=== PATIENT | female | born 1960 | race Caucasian/White ===

== ENCOUNTER → 2017-11-03 13:31 | Outpatient (CLI) | payer MEDICARE, BC, SELFPAY ==
[2017-11-03 15:37] LABS: Absolute Lymphocyte Count 1.67 X10^3/ul (0.83-4.51); Basophil# 0.02 X10^3/uL; Basophil% 0.4 % (0-1); Eosinophil# 0.06 X10^3/uL; Eosinophils% 1.1 % (0-5); Hematocrit 42.1 % (37-47); Hemoglobin 13.3 g/dl (12.0-15.0); Lymphocyte # 1.67 X10^3/ul (4.0); Lymphocyte % 31.5 % (19-41); Mean Corp Hgb Conc 31.6 g/gl (32-36); Mean Corpuscular Hgb 28.5 pg (27.0-32.0); Mean Corpuscular Volume 90.3 fL (81-99); Mean Platelet Vol. 10.8 fl (6.2-12.0); Monocyte# 0.55 X10^3/uL; Monocyte% 10.4 % (0-10); Neutrophil % 56.6 % (47-70); Platelet Count 270 K/mm3 (150-450); RBC Distribution Width SD 49.5 fl (35.1-43.9); Red Blood Count 4.66 M/mm3 (4.2-5.4); White Blood Count 5.3 K/mm3 (4.4-11.0)
[2017-11-03 15:46] LABS: POSITIVE COUNT NO; POSITIVE DIFFERENTIAL NO; POSITIVE MORPHOLOGY NO
[2017-11-03 15:47] LABS: AST(SGOT) 25 U/L (15-37); Alanine Aminotransfer ALT/SGPT 38 U/L (13-56); Albumin, Serum 3.4 g/dL (3.2-5.0); Alkaline Phosphatase 70 U/L (45-117); Anion Gap 7 (5-15); BUN 8 mg/dL (7-18); BUN/Creat Ratio 15.5 RATIO (10-20); Chloride 103 mmol/L (98-107); Creatinine, Serum 0.52 mg/dL (0.55-1.02); EST Glomerular Filtration Rate 129 mL/min (>60); Est Glom Filt Rate - Afr Amer 156 mL/min (>60); Globulin 3.5 g/dL (2.2-4.2); Glucose 84 mg/dL (74-106); Potassium 3.9 mmol/L (3.5-5.1); Protein, Total 6.9 g/dL (6.4-8.2); Sodium Level 141 mmol/L (136-145)
== END ==
PROVIDERS: Family Provider Family Medicine; PCP Family Medicine; Visit Provider Internal Medicine Rheumatology
DX: M06.00 Rheumatoid arthritis without rheumatoid factor, unspecified site (principal); Z79.899 Other long term (current) drug therapy; M79.7 Fibromyalgia; G56.00 Carpal tunnel syndrome, unspecified upper limb; M75.121 Complete rotator cuff tear or rupture of right shoulder, not specified as traumatic; M47.897 Other spondylosis, lumbosacral region; I10 Essential (primary) hypertension; E78.5 Hyperlipidemia, unspecified
CPT/HCPCS: 36415; 80053; 85025

== ENCOUNTER → 2017-11-30 21:00 | Outpatient (CLI) | payer MEDICARE, BC, SELFPAY | PROVIDERS: Family Provider Family Medicine; PCP Family Medicine; Visit Provider Family Medicine | DX: G47.33 Obstructive sleep apnea (adult) (pediatric) (principal) | CPT/HCPCS: 95811 ==

== ENCOUNTER → 2018-01-27 12:41 | Outpatient (CLI) | payer MEDICARE, BC, SELFPAY ==
[2018-01-27 14:32] LABS: Absolute Neutrophil Count 4.6 X10^3/uL (2.0-7.7); Basophil# 0.02 X10^3/uL; Basophil% 0.3 % (0-1); Eosinophil# 0.08 X10^3/uL; Eosinophils% 1.1 % (0-5); Hematocrit 41.2 % (37-47); Hemoglobin 13.7 g/dl (12.0-15.0); Lymphocyte % 23.4 % (19-41); Mean Corp Hgb Conc 33.3 g/gl (32-36); Mean Corpuscular Hgb 30.3 pg (27.0-32.0); Mean Corpuscular Volume 91.2 fL (81-99); Mean Platelet Vol. 10.8 fl (6.2-12.0); Monocyte# 0.87 X10^3/uL; Neutrophil # 4.59 X10^3/uL (2.7-7.7); Neutrophil % 63.1 % (47-70); Platelet Count 252 K/mm3 (150-450); RBC Distribution Width CV 14.9 % (11.6-14.6); RBC Distribution Width SD 49.1 fl (35.1-43.9); Red Blood Count 4.52 M/mm3 (4.2-5.4); White Blood Count 7.3 K/mm3 (4.4-11.0)
[2018-01-27 14:33] LABS: POSITIVE COUNT NO; POSITIVE DIFFERENTIAL NO; POSITIVE MORPHOLOGY NO
[2018-01-27 14:55] LABS: AST(SGOT) 19 U/L (15-37); Alanine Aminotransfer ALT/SGPT 28 U/L (13-56); Albumin, Serum 3.6 g/dL (3.2-5.0); Alkaline Phosphatase 77 U/L (45-117); Anion Gap 9 (5-15); BUN 10 mg/dL (7-18); BUN/Creat Ratio 15.5 RATIO (10-20); Calcium,Total 9.1 mg/dL (8.5-10.1); Chloride 104 mmol/L (98-107); Creatinine, Serum 0.65 mg/dL (0.55-1.02); EST Glomerular Filtration Rate 100 mL/min (>60); Est Glom Filt Rate - Afr Amer 121 mL/min (>60); Globulin 3.6 g/dL (2.2-4.2); Glucose 87 mg/dL (74-106); Potassium 4.1 mmol/L (3.5-5.1); Protein, Total 7.2 g/dL (6.4-8.2); Sodium Level 141 mmol/L (136-145)
== END ==
PROVIDERS: Family Provider Family Medicine; PCP Family Medicine; Visit Provider Internal Medicine Rheumatology
DX: M06.00 Rheumatoid arthritis without rheumatoid factor, unspecified site (principal); Z79.899 Other long term (current) drug therapy; M79.7 Fibromyalgia; G56.03 Carpal tunnel syndrome, bilateral upper limbs; M75.121 Complete rotator cuff tear or rupture of right shoulder, not specified as traumatic; M47.897 Other spondylosis, lumbosacral region; I10 Essential (primary) hypertension; E78.5 Hyperlipidemia, unspecified
CPT/HCPCS: 36415; 80053; 85025

== ENCOUNTER 2018-04-08 15:30 | Outpatient (RCR) | payer MEDICARE, BC, SELFPAY ==
--- NOTE | 2018-03-22 13:57 | HP.OTEVAL_ITS ---
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 Date of Evaluation: 03/22/18 Occupational Therapist: Lenore Haywood, MEL/Musa, CHT - Subjective Subjective: PT attends OT eval following a left CMC arthroplasty. PT states she struggled with pain mtg of her left thumb for a few years. pt states conservitive tx did not help resolve her pain. Pt opted for sx and was completed on February 24, 2018. pt attends OT session for rehab and custom orthosis fabrication to provide protection and support during her recovery. pt states she is using her right hand for all BADLS and IADls pt states she is retired and is on disability. 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 with BADLs and IADls by d/c Goal:: Pt will demo a increase in left wrist ROM equal to right by D/c to return pt to PLOF by D/C. Pt will demo a increase in left thumb ROM to return pt to ind. manipulation of fastenders by d/c Goal:: Pt will report pain no grater than 1/10 or less with using left hand/UE with BADLs and IADLS by d/c Goal:: pt will demo understanding of scar mtg by end of 2nd session to limit scar adhesions Goal:: pt will demo understanding of joint protection and ad. eq. to provide increase ind. with BADLS and IADLS by d/c - Rehabilitation General Assessment: S/P left CMC arthroplasty LRTI, pt demo limited left thumb and wrist ROM. The deficits limit pts ind. with BADls and IADls. pt demo need for skilled OT services to return pt to PLOF with ROM, Strength and ADL performance. rec'd skillled OT services 1-2x week for 8 weeks to return pt to OF. Today custom orthosis was fabricated, pt ed. in use and care as well as skin precautions. PT was ed. on wrist ROM and thumb opposition ex. pt demo understanding of ex. Rehabilitation Potential: Excellent - Anticipated Interventions Anticipated Interventions: A/AAROM/PROM, Strengthening, Scar Care, Triggerpoint Release, Orthoses, Fine Motor Coord/Joey - Visit Plan Frequency: 1-2x /Week Duration: 2 Months TEXT: Thank you for the opportunity to evaluate your patient. For Medicare and Medicare HMO plans, please review the plan of care and approve it. It will need to be FAXED BACK to us at [phone] for Medicare purposes. Please let me know if there are questions or concerns regarding this plan of care. Physician Signature: Date:
--- NOTE | 2018-04-12 08:47 | HP.OTDCSUM ---
HP - OT D/C Summary It has been my pleasure to treat JOELLEN BERNABE under orders from Oli Meza, for the diagnosis of left primary osteoarthritis of both CMC joints for a total of 4 visit(s). Please see the following information for a summary of their discharge status. - Overall Improvement % Improvement: 90 - Objective Objective/Function: 25# left custom harvester strength. IP 60. MCP 25. Pt demo a functional composite fist and good ROM. PT is ind. with all BADLs and IADLS at this time. - Goals Patient Goals: Regain Mobility, Regain Strength, Decrease Pain, Improve Fine Motor Skills, Use Hand/Wrist/Arm Normally Again Goal:: PT will demo in at 8 weeks a left custom harvester strength of 25# or greater to increase pts ind. with BADLs and IADls by d/c Goal:: Pt will demo a increase in left wrist ROM equal to right by D/c to return pt to PLOF by D/C. Pt will demo a increase in left thumb ROM to return pt to ind. manipulation of fastenders by d/c Goal:: Pt will report pain no grater than 1/10 or less with using left hand/UE with BADLs and IADLS by d/c Goal:: pt will demo understanding of scar mtg by end of 2nd session to limit scar adhesions Goal:: pt will demo understanding of joint protection and ad. eq. to provide increase ind. with BADLS and IADLS by d/c - Plan Plan: cont to follow CMC arthroplasty protocol - D/C Information Discharge Comments: PT was seen for 4 visits. She has met goals in OT and is D/C at this time . If there are questions or concerns regarding this patient's occupational therapy, please fell free to call me at [phone]. Thank you for the referral of this patient. Sincerely, Lenore Haywood, OTR/L, CHT
== END 2018-04-08 19:00 | disposition home or self-care (01) ==
LOC: OT 15:30
PROVIDERS: Family Provider Family Medicine; PCP Family Medicine; Visit Provider Orthopaedic Surgery
DX: M18.0 Bilateral primary osteoarthritis of first carpometacarpal joints (principal)
CPT/HCPCS: 97035; 97140; 97166; 97530; 97760

== ENCOUNTER → 2018-04-27 13:25 | Outpatient (CLI) | payer MEDICARE, BC, SELFPAY ==
[2018-04-27 15:09] LABS: Absolute Lymphocyte Count 1.59 X10^3/ul (0.83-4.51); Absolute Neutrophil Count 4.1 X10^3/uL (2.0-7.7); Basophil# 0.02 X10^3/uL; Basophil% 0.3 % (0-1); Eosinophil# 0.07 X10^3/uL; Eosinophils% 1.1 % (0-5); Hematocrit 42.9 % (37-47); Hemoglobin 13.5 g/dl (12.0-15.0); Lymphocyte # 1.59 X10^3/ul (4.0); Lymphocyte % 24.7 % (19-41); Mean Corp Hgb Conc 31.5 g/gl (32-36); Mean Corpuscular Hgb 28.6 pg (27.0-32.0); Mean Corpuscular Volume 90.9 fL (81-99); Mean Platelet Vol. 10.7 fl (6.2-12.0); Monocyte# 0.62 X10^3/uL; Monocyte% 9.6 % (0-10); Neutrophil # 4.12 X10^3/uL (2.7-7.7); Neutrophil % 64.1 % (47-70); Platelet Count 261 K/mm3 (150-450); RBC Distribution Width CV 14.4 % (11.6-14.6); Red Blood Count 4.72 M/mm3 (4.2-5.4); White Blood Count 6.4 K/mm3 (4.4-11.0)
[2018-04-27 15:19] LABS: POSITIVE COUNT NO; POSITIVE DIFFERENTIAL NO; POSITIVE MORPHOLOGY NO
[2018-04-27 15:20] LABS: AST(SGOT) 23 U/L (15-37); Alanine Aminotransfer ALT/SGPT 31 U/L (13-56); Albumin, Serum 3.6 g/dL (3.2-5.0); Alkaline Phosphatase 77 U/L (45-117); Anion Gap 11 (5-15); BUN 9 mg/dL (7-18); BUN/Creat Ratio 13.7 RATIO (10-20); Calcium,Total 9.1 mg/dL (8.5-10.1); Chloride 104 mmol/L (98-107); Creatinine, Serum 0.66 mg/dL (0.55-1.02); EST Glomerular Filtration Rate 98 mL/min (>60); Est Glom Filt Rate - Afr Amer 119 mL/min (>60); Globulin 3.6 g/dL (2.2-4.2); Glucose 73 mg/dL (74-106); Potassium 4.1 mmol/L (3.5-5.1); Protein, Total 7.2 g/dL (6.4-8.2); Sodium Level 141 mmol/L (136-145)
== END ==
PROVIDERS: Family Provider Family Medicine; PCP Family Medicine; Visit Provider Internal Medicine Rheumatology
DX: M06.00 Rheumatoid arthritis without rheumatoid factor, unspecified site (principal); Z79.899 Other long term (current) drug therapy; M79.7 Fibromyalgia
CPT/HCPCS: 36415; 80053; 85025

== ENCOUNTER → 2018-06-08 14:25 | Outpatient (CLI) | payer MEDICARE, BC, SELFPAY ==
--- NOTE | 2018-06-08 14:27 | BI_ITS ---
MAMMOGRAPHY - BILATERAL SCREENING 3-D DAVID SYNTHESIS REASON FOR EXAM: Female, 58 years old. Bilateral Screening 3-D tomosynthesis PERTINENT HISTORY: Asymptomatic. No significant family history. TECHNIQUE: 2-D mammograms and 3-D David synthesis of the breast (s) were performed. CAD was performed. COMPARISON: 05/13/2017, 05/12/2016. FINDINGS: The breast composition is composed of scattered fibroglandular density. Scattered benign calcifications are seen. No dense spiculated dominant masses or suspicious microcalcification cluster are identified. No new architectural distortion, asymmetric density, adenopathy, skin thickening or nipple retraction identified. There has been no significant change since the most recent prior study identified. BI/SCREENING MAMM (CAD), BILAT IMPRESSION: No mammographic sign of malignancy. Routine yearly mammograms recommended. ASSESSMENT CATEGORY: BIRADS Category 2: Benign. A letter regarding these results will be sent to the patient by the facility within 30 days. FOLLOW UP RECOMMENDATION: Yearly follow up mammogram recommended. (A) Any palpable lesion if present should be followed based on clinical grounds and biopsy performed if clinically persistent for 3 months or increasing size. Approximately 10% of breast cancers are not detected by mammography. A normal mammogram should not delay biopsy of a clinically suspicious abnormality. Dense breast tissue may obscure neoplasm. Electronically Signed: Kaushik Fischer, at 16:51 EDT Tel , Service support ,
== END ==
PROVIDERS: Family Provider Family Medicine; PCP Family Medicine; Visit Provider Family Medicine
DX: Z12.31 Encounter for screening mammogram for malignant neoplasm of breast (principal)
CPT/HCPCS: 77063; 77067

== ENCOUNTER → 2018-07-23 13:09 | Outpatient (CLI) | payer MEDICARE, BC, SELFPAY ==
[2018-07-23 17:58] LABS: AST(SGOT) 27 U/L (15-37); Alanine Aminotransfer ALT/SGPT 38 U/L (13-56); Albumin, Serum 3.5 g/dL (3.2-5.0); Alkaline Phosphatase 70 U/L (45-117); Anion Gap 8 (5-15); BUN 7 mg/dL (7-18); BUN/Creat Ratio 11.6 RATIO (10-20); Calcium,Total 8.6 mg/dL (8.5-10.1); Chloride 107 mmol/L (98-107); EST Glomerular Filtration Rate 108 mL/min (>60); Est Glom Filt Rate - Afr Amer 130 mL/min (>60); Globulin 3.4 g/dL (2.2-4.2); Glucose 79 mg/dL (74-106); Protein, Total 6.9 g/dL (6.4-8.2); Sodium Level 143 mmol/L (136-145)
[2018-07-23 17:59] LABS: Absolute Lymphocyte Count 1.42 X10^3/ul (0.83-4.51); Absolute Neutrophil Count 4.7 X10^3/uL (2.0-7.7); Basophil# 0.03 X10^3/uL; Basophil% 0.4 % (0-1); Eosinophil# 0.06 X10^3/uL; Eosinophils% 0.9 % (0-5); Hematocrit 43.5 % (37-47); Hemoglobin 13.7 g/dl (12.0-15.0); Lymphocyte # 1.42 X10^3/ul (4.0); Mean Corp Hgb Conc 31.5 g/gl (32-36); Mean Corpuscular Hgb 28.8 pg (27.0-32.0); Mean Corpuscular Volume 91.4 fL (81-99); Mean Platelet Vol. 11.5 fl (6.2-12.0); Monocyte# 0.59 X10^3/uL; Monocyte% 8.7 % (0-10); Neutrophil # 4.65 X10^3/uL (2.7-7.7); Neutrophil % 68.9 % (47-70); Platelet Count 249 K/mm3 (150-450); RBC Distribution Width CV 14.7 % (11.6-14.6); RBC Distribution Width SD 49.1 fl (35.1-43.9); Red Blood Count 4.76 M/mm3 (4.2-5.4); White Blood Count 6.8 K/mm3 (4.4-11.0)
[2018-07-23 18:11] LABS: POSITIVE COUNT NO; POSITIVE DIFFERENTIAL NO; POSITIVE MORPHOLOGY NO
== END ==
PROVIDERS: Family Provider Family Medicine; PCP Family Medicine; Referring Provider Internal Medicine Rheumatology; Visit Provider Internal Medicine Rheumatology
DX: M06.00 Rheumatoid arthritis without rheumatoid factor, unspecified site (principal); Z79.899 Other long term (current) drug therapy; M79.7 Fibromyalgia; G56.01 Carpal tunnel syndrome, right upper limb; M75.121 Complete rotator cuff tear or rupture of right shoulder, not specified as traumatic; M47.897 Other spondylosis, lumbosacral region; I10 Essential (primary) hypertension; E78.5 Hyperlipidemia, unspecified
CPT/HCPCS: 36415; 80053; 85025

== ENCOUNTER → 2018-10-19 14:25 | Outpatient (CLI) | payer MEDICARE, BC, SELFPAY ==
[2018-10-19 15:25] LABS: Absolute Lymphocyte Count 1.42 X10^3/ul (0.83-4.51); Absolute Neutrophil Count 3.1 X10^3/uL (2.0-7.7); Basophil# 0.02 X10^3/uL; Basophil% 0.4 % (0-1); Eosinophil# 0.04 X10^3/uL; Eosinophils% 0.8 % (0-5); Hematocrit 43.7 % (37-47); Hemoglobin 14.1 g/dl (12.0-15.0); Lymphocyte # 1.42 X10^3/ul (4.0); Mean Corp Hgb Conc 32.3 g/gl (32-36); Mean Corpuscular Hgb 29.1 pg (27.0-32.0); Mean Corpuscular Volume 90.1 fL (81-99); Mean Platelet Vol. 11.2 fl (6.2-12.0); Monocyte# 0.53 X10^3/uL; Monocyte% 10.5 % (0-10); Neutrophil # 3.06 X10^3/uL (2.7-7.7); Neutrophil % 60.3 % (47-70); Platelet Count 235 K/mm3 (150-450); RBC Distribution Width CV 14.8 % (11.6-14.6); RBC Distribution Width SD 48.3 fl (35.1-43.9); Red Blood Count 4.85 M/mm3 (4.2-5.4); White Blood Count 5.1 K/mm3 (4.4-11.0)
[2018-10-19 15:27] LABS: POSITIVE COUNT NO; POSITIVE DIFFERENTIAL NO; POSITIVE MORPHOLOGY NO
[2018-10-19 16:10] LABS: Albumin, Serum 3.7 g/dL (3.2-5.0); BUN 9 mg/dL (7-18); BUN/Creat Ratio 14.7 RATIO (10-20); Creatinine, Serum 0.61 mg/dL (0.55-1.02); EST Glomerular Filtration Rate 106 mL/min (>60); Est Glom Filt Rate - Afr Amer 128 mL/min (>60); Glucose 79 mg/dL (74-106)
[2018-10-19 16:11] LABS: ALB/GLOB Ratio 1.1 RATIO (0.9-2.4); AST(SGOT) 19 U/L (15-37); Alanine Aminotransfer ALT/SGPT 32 U/L (13-56); Alkaline Phosphatase 68 U/L (45-117); Anion Gap 7 (5-15); Calcium,Total 9.2 mg/dL (8.5-10.1); Chloride 106 mmol/L (98-107); Globulin 3.3 g/dL (2.2-4.2); Potassium 4.2 mmol/L (3.5-5.1); Sodium Level 143 mmol/L (136-145)
== END ==
PROVIDERS: Family Provider Family Medicine; PCP Family Medicine; Referring Provider Internal Medicine Rheumatology; Visit Provider Internal Medicine Rheumatology
DX: M06.00 Rheumatoid arthritis without rheumatoid factor, unspecified site (principal); Z79.899 Other long term (current) drug therapy; M79.7 Fibromyalgia; G56.01 Carpal tunnel syndrome, right upper limb; M75.121 Complete rotator cuff tear or rupture of right shoulder, not specified as traumatic; M47.897 Other spondylosis, lumbosacral region; I10 Essential (primary) hypertension; E78.5 Hyperlipidemia, unspecified
CPT/HCPCS: 36415; 80053; 85025

== ENCOUNTER → 2019-01-14 | Outpatient (CLI) | payer MEDICARE, BC, SELFPAY ==
[2019-01-14 15:27] LABS: Absolute Lymphocyte Count 1.64 X10^3/ul (0.83-4.51); Absolute Neutrophil Count 3.1 X10^3/uL (2.0-7.7); Basophil# 0.03 X10^3/uL; Basophil% 0.6 % (0-1); Eosinophil# 0.03 X10^3/uL; Eosinophils% 0.6 % (0-5); Hematocrit 43.6 % (37-47); Hemoglobin 14.4 g/dl (12.0-15.0); Lymphocyte # 1.64 X10^3/ul (4.0); Lymphocyte % 30.5 % (19-41); Mean Corpuscular Hgb 29.3 pg (27.0-32.0); Mean Corpuscular Volume 88.8 fL (81-99); Mean Platelet Vol. 10.7 fl (6.2-12.0); Monocyte# 0.58 X10^3/uL; Monocyte% 10.8 % (0-10); Neutrophil # 3.08 X10^3/uL (2.7-7.7); Neutrophil % 57.3 % (47-70); Platelet Count 245 K/mm3 (150-450); RBC Distribution Width CV 14.8 % (11.6-14.6); RBC Distribution Width SD 47.9 fl (35.1-43.9); Red Blood Count 4.91 M/mm3 (4.2-5.4); White Blood Count 5.4 K/mm3 (4.4-11.0)
[2019-01-14 15:30] LABS: POSITIVE COUNT NO; POSITIVE DIFFERENTIAL NO; POSITIVE MORPHOLOGY NO
[2019-01-14 16:19] LABS: ALB/GLOB Ratio 1.1 RATIO (0.9-2.4); AST(SGOT) 23 U/L (15-37); Alanine Aminotransfer ALT/SGPT 31 U/L (13-56); Albumin, Serum 3.7 g/dL (3.2-5.0); Alkaline Phosphatase 72 U/L (45-117); Anion Gap 5 (5-15); BUN 11 mg/dL (7-18); BUN/Creat Ratio 17.5 RATIO (10-20); Chloride 107 mmol/L (98-107); Creatinine, Serum 0.63 mg/dL (0.55-1.02); EST Glomerular Filtration Rate 102 mL/min (>60); Est Glom Filt Rate - Afr Amer 124 mL/min (>60); Globulin 3.4 g/dL (2.2-4.2); Glucose 77 mg/dL (74-106); Protein, Total 7.1 g/dL (6.4-8.2); Sodium Level 140 mmol/L (136-145)
== END | disposition home or self-care (01) ==
LOC: MTLAB 14:14
PROVIDERS: Family Provider Family Medicine; PCP Family Medicine; Referring Provider Internal Medicine Rheumatology; Visit Provider Internal Medicine Rheumatology
DX: M06.00 Rheumatoid arthritis without rheumatoid factor, unspecified site (principal); Z79.899 Other long term (current) drug therapy; M79.7 Fibromyalgia; M75.121 Complete rotator cuff tear or rupture of right shoulder, not specified as traumatic; M47.897 Other spondylosis, lumbosacral region; I10 Essential (primary) hypertension; E78.5 Hyperlipidemia, unspecified
CPT/HCPCS: 36415; 80053; 85025

== ENCOUNTER → 2019-04-11 | Outpatient (CLI) | payer MEDICARE, BC, SELFPAY ==
[2019-04-11 18:23] LABS: Absolute Lymphocyte Count 1.71 X10^3/uL (0.83-4.51); Absolute Neutrophil Count 2.8 X10^3/uL (2.0-7.7); Basophil# 0.03 X10^3/uL; Basophil% 0.5 % (0-1); Eosinophil# 0.86 X10^3/uL; Eosinophils% 14.3 % (0-5); Hematocrit 42.1 % (37-47); Hemoglobin 13.5 g/dL (12.0-15.0); Lymphocyte # 1.71 X10^3/ul (4.0); Lymphocyte % 28.4 % (19-41); Mean Corp Hgb Conc 32.1 g/dL (32-36); Mean Corpuscular Volume 90.3 fL (81-99); Mean Platelet Vol. 11.1 fl (6.2-12.0); Monocyte# 0.58 X10^3/uL; Monocyte% 9.6 % (0-10); NRBC Flagged by Analyzer 0 % (0-5); Neutrophil # 2.83 X10^3/uL (2.7-7.7); Neutrophil % 46.9 % (47-70); Platelet Count 226 K/mm3 (150-450); RBC Distribution Width CV 14.5 % (11.6-14.6); RBC Distribution Width SD 47.6 fl (35.1-43.9); Red Blood Count 4.66 M/mm3 (4.2-5.4)
[2019-04-11 18:26] LABS: ALB/GLOB Ratio 1.1 RATIO (0.9-2.4); AST(SGOT) 23 U/L (15-37); Alanine Aminotransfer ALT/SGPT 31 U/L (13-56); Albumin, Serum 3.5 g/dL (3.2-5.0); Alkaline Phosphatase 69 U/L (45-117); Anion Gap 6 (5-15); BUN 9 mg/dL (7-18); BUN/Creat Ratio 13.3 RATIO (10-20); Calcium,Total 8.9 mg/dL (8.5-10.1); Chloride 107 mmol/L (98-107); Creatinine, Serum 0.68 mg/dL (0.55-1.02); EST Glomerular Filtration Rate 94 mL/min (>60); Est Glom Filt Rate - Afr Amer 114 mL/min (>60); Globulin 3.2 g/dL (2.2-4.2); Glucose 110 mg/dL (74-106); Protein, Total 6.7 g/dL (6.4-8.2); Sodium Level 141 mmol/L (136-145)
== END | disposition home or self-care (01) ==
LOC: MTLAB 16:05
PROVIDERS: Family Provider Family Medicine; PCP Family Medicine; Referring Provider Internal Medicine Rheumatology; Visit Provider Internal Medicine Rheumatology
DX: M06.00 Rheumatoid arthritis without rheumatoid factor, unspecified site (principal); Z79.899 Other long term (current) drug therapy; M79.7 Fibromyalgia; M75.121 Complete rotator cuff tear or rupture of right shoulder, not specified as traumatic; M47.897 Other spondylosis, lumbosacral region; I10 Essential (primary) hypertension; E78.5 Hyperlipidemia, unspecified; E03.9 Hypothyroidism, unspecified
CPT/HCPCS: 36415; 80053; 85025

== ENCOUNTER → 2019-07-09 10:05 | Outpatient (CLI) | payer MEDICARE, BC, SELFPAY ==
--- NOTE | 2019-07-09 10:07 | BI_ITS ---
MAMMOGRAPHY - BILATERAL SCREENING REASON FOR EXAM: Female, 59 years old. Routine annual screening examination. PERTINENT HISTORY: Non-contributory. TECHNIQUE: Digital bilateral breast david (3D mammographic acquisition) in the CC and MLO projections. 2-D mediolateral oblique (MLO) and craniocaudad (CC) views of both breasts were obtained. CAD: Full Field Digital Mammography with Computer Added Detection was performed. COMPARISON: Comparison is made with prior study dated June 08, 2018 and May 13, 2017. FINDINGS: Breast Composition: There are scattered areas of fibroglandular density. There are no dominant masses or suspicious calcifications. Stable benign-appearing bilateral axillary lymph nodes. No other significant abnormalities are identified. There has been no significant change since the prior study. BI/SCRN MAMM (CAD)W/DAVID BILAT IMPRESSION: Stable bilateral screening mammogram. Yearly follow-up mammogram recommended. (A) ASSESSMENT CATEGORY: BIRADS Category 2: Benign. A letter regarding these results will be sent to the patient by the facility within 30 days. Approximately 10% of breast cancers are not detected by mammography. A normal mammogram should not delay biopsy of a clinically suspicious abnormality. [id number] Electronically Signed: Gennaro Pendleton, at 8:48 EST , Service support ,
== END ==
PROVIDERS: Family Provider Family Medicine; PCP Family Medicine; Referring Provider Family Medicine; Visit Provider Family Medicine
DX: Z12.31 Encounter for screening mammogram for malignant neoplasm of breast (principal)
CPT/HCPCS: 77063; 77067

== ENCOUNTER → 2019-07-11 13:30 | Outpatient (CLI) | payer MEDICARE, BC, SELFPAY ==
[2019-07-11 16:13] LABS: Absolute Lymphocyte Count 1.22 X10^3/uL (0.83-4.51); Absolute Neutrophil Count 3.2 X10^3/uL (2.0-7.7); Basophil# 0.05 X10^3/uL; Eosinophil# 0.04 X10^3/uL; Eosinophils% 0.8 % (0-5); Hematocrit 43.4 % (37-47); Hemoglobin 14.2 g/dL (12.0-15.0); Lymphocyte # 1.22 X10^3/ul (4.0); Lymphocyte % 23.6 % (19-41); Mean Corp Hgb Conc 32.7 g/dL (32-36); Mean Corpuscular Volume 91.6 fL (81-99); Mean Platelet Vol. 10.8 fl (6.2-12.0); Monocyte# 0.61 X10^3/uL; Monocyte% 11.8 % (0-10); NRBC Flagged by Analyzer 0 % (0-5); Neutrophil # 3.22 X10^3/uL (2.7-7.7); Neutrophil % 62.4 % (47-70); Platelet Count 242 K/mm3 (150-450); RBC Distribution Width SD 47.8 fl (35.1-43.9); Red Blood Count 4.74 M/mm3 (4.2-5.4); White Blood Count 5.2 K/mm3 (4.4-11.0)
[2019-07-11 16:27] LABS: AST(SGOT) 19 U/L (15-37); Alanine Aminotransfer ALT/SGPT 27 U/L (13-56); Albumin, Serum 3.6 g/dL (3.2-5.0); Alkaline Phosphatase 64 U/L (45-117); Anion Gap 6 (5-15); BUN 7 mg/dL (7-18); BUN/Creat Ratio 10.9 RATIO (10-20); Calcium,Total 9.3 mg/dL (8.5-10.1); Chloride 104 mmol/L (98-107); Creatinine, Serum 0.64 mg/dL (0.55-1.02); EST Glomerular Filtration Rate 100 mL/min (>60); Est Glom Filt Rate - Afr Amer 120 mL/min (>60); Globulin 3.5 g/dL (2.2-4.2); Glucose 84 mg/dL (74-106); Protein, Total 7.1 g/dL (6.4-8.2); Sodium Level 140 mmol/L (136-145)
== END ==
PROVIDERS: Family Provider Family Medicine; PCP Family Medicine; Referring Provider Internal Medicine Rheumatology; Visit Provider Internal Medicine Rheumatology
DX: M06.00 Rheumatoid arthritis without rheumatoid factor, unspecified site (principal); Z79.899 Other long term (current) drug therapy; M79.7 Fibromyalgia; M75.121 Complete rotator cuff tear or rupture of right shoulder, not specified as traumatic; M47.897 Other spondylosis, lumbosacral region; I10 Essential (primary) hypertension; E78.5 Hyperlipidemia, unspecified; E03.9 Hypothyroidism, unspecified
CPT/HCPCS: 36415; 80053; 85025

== ENCOUNTER → 2019-10-04 11:59 | Outpatient (CLI) | payer MEDICARE, BC, SELFPAY ==
[2019-10-04 14:00] LABS: Absolute Lymphocyte Count 1.66 X10^3/uL (0.83-4.51); Absolute Neutrophil Count 3.4 X10^3/uL (2.0-7.7); Basophil# 0.04 X10^3/uL; Basophil% 0.7 % (0-1); Eosinophil# 0.11 X10^3/uL; Eosinophils% 1.9 % (0-5); Hematocrit 45.1 % (37-47); Hemoglobin 14.4 g/dL (12.0-15.0); Lymphocyte # 1.66 X10^3/ul (4.0); Lymphocyte % 27.9 % (19-41); Mean Corp Hgb Conc 31.9 g/dL (32-36); Mean Corpuscular Volume 90.7 fL (81-99); Mean Platelet Vol. 10.7 fl (6.2-12.0); Monocyte# 0.73 X10^3/uL; Monocyte% 12.3 % (0-10); NRBC Flagged by Analyzer 0 % (0-5); Neutrophil # 3.37 X10^3/uL (2.7-7.7); Neutrophil % 56.7 % (47-70); Platelet Count 250 K/mm3 (150-450); RBC Distribution Width CV 14.4 % (11.6-14.6); RBC Distribution Width SD 47.8 fl (35.1-43.9); Red Blood Count 4.97 M/mm3 (4.2-5.4); White Blood Count 5.9 K/mm3 (4.4-11.0)
[2019-10-04 14:15] LABS: ALB/GLOB Ratio 1.1 RATIO (0.9-2.4); AST(SGOT) 17 U/L (15-37); Alanine Aminotransfer ALT/SGPT 26 U/L (13-56); Albumin, Serum 3.6 g/dL (3.2-5.0); Alkaline Phosphatase 65 U/L (45-117); Anion Gap 5 (5-15); BUN 10 mg/dL (7-18); BUN/Creat Ratio 13.8 RATIO (10-20); Calcium,Total 9.7 mg/dL (8.5-10.1); Chloride 107 mmol/L (98-107); Creatinine, Serum 0.73 mg/dL (0.55-1.02); EST Glomerular Filtration Rate 86 mL/min (>60); Est Glom Filt Rate - Afr Amer 105 mL/min (>60); Globulin 3.4 g/dL (2.2-4.2); Glucose 90 mg/dL (74-106); Potassium 4.2 mmol/L (3.5-5.1); Sodium Level 142 mmol/L (136-145)
== END ==
PROVIDERS: PCP Family Medicine; Referring Provider Internal Medicine Rheumatology; Visit Provider Internal Medicine Rheumatology
DX: M06.00 Rheumatoid arthritis without rheumatoid factor, unspecified site (principal); M75.121 Complete rotator cuff tear or rupture of right shoulder, not specified as traumatic; M47.897 Other spondylosis, lumbosacral region; M79.7 Fibromyalgia; I10 Essential (primary) hypertension; E78.5 Hyperlipidemia, unspecified; E03.9 Hypothyroidism, unspecified; Z79.899 Other long term (current) drug therapy
CPT/HCPCS: 36415; 80053; 85025

== ENCOUNTER 2019-10-21 12:16 | Emergency (ER) | payer MEDICARE, BC, SELFPAY ==
[2019-10-21 12:17] VITALS: BP 133/90; PULSE 92; RESP 18; TEMP 36.3; O2SAT 100; BMI 36.1
--- NOTE | 2019-10-21 13:12 | CT_ITS ---
STUDY: CT CERVICAL SPINE WITHOUT CONTRAST REASON FOR EXAM: Female, 59 years old. UNCONTROLLED NECK PAIN X ONE WEEK. NKI. Pt states she has pinched nerve. Hx of HTN RADIATION DOSAGE (If Supplied By Facility): CTDIvol = ( 30.75 ) mGy, DLP = ( 514.77 ) mGycm TECHNIQUE: High resolution transaxial imaging was performed without contrast material. Sagittal and coronal images were reconstructed. Individualized dose optimization techniques were used for this CT. COMPARISON: None FINDINGS: Normal craniovertebral junction. Normal anterior atlantoaxial articulation. Normal odontoid process. There is straightening of the normal cervical lordosis. Normal vertebral bodies and posterior osseous elements. C2-3: Normal endplates. Normal disc height and morphology. Normal central canal and intervertebral neuroforamina. C3-4: Normal endplates. Normal disc height and morphology. Normal central canal and intervertebral neuroforamina. C4-5: Minimal anterior listhesis of C4 on C5 due to hypertrophy of the facet joints worse on the right side. Uncovertebral arthrosis. Moderate degree of bilateral neural foraminal stenosis slightly worse on the right side. C5-6: Mild degree of facet joint osteoarthritis with hypertrophy worse on the right side. No significant stenosis is seen. C6-7: Moderate degree of disc space narrowing. Anterior spondylosis. C7-T1: Normal endplates. Normal disc height and morphology. Normal central canal and intervertebral neuroforamina. Normal visualized soft tissue structures. CT/Spine Cervical without Contras IMPRESSION: Minimal anterolisthesis of C4 on C5 due to hypertrophy of the facet joints worse on the right side with bilateral neural foraminal stenosis worse on the right side. Electronically Signed: Gennaro Pendleton, at 13:59 EST , Service support ,
--- NOTE | 2019-10-21 13:16 | ED.VISSUMM ---
- ER Visit Summary Date of Service: 10/21/19 Chief Complaint: Neck pain History of Present Illness: The patient is a 59 F who presents with neck pain that has been getting progressively worse over the past week. Patient states this feels similar to pain she had with a pinched nerve in her neck. Patient states the pain radiates into her left shoulder and arm. Patient states the pain is been constant. Patient states nothing makes it better or worse. Patient states she saw her primary care physician today for this. Patient states that he told her that he could not give her anything for her pain and that she would have to come to the emergency department for that. Physical Examination: Vital signs are stable. Patient is afebrile. Patient is in no acute distress. Musculoskeletal exam reveals tenderness and spasm of the left cervical paraspinal muscles. There is also tenderness and spasm of the left trapezius muscle. There is no bony crepitance or step-off. There is no midline tenderness. Range of motion was limited in all motions of the cervical spine secondary to pain. Range of motion of left shoulder was also limited secondary to pain. Sensation was intact to light touch bilaterally in the upper extremities. Strength is 5/5 bilateral in the upper extremities. Heart was regular rate and rhythm. Radial pulses are equal bilaterally. Lungs are clear and equal bilaterally. Cranial nerves II through XII are intact. Test Results: CT scan of the cervical spine was obtained. There are some degenerative changes. There is no acute process noted. This was interpreted by the radiologist and reviewed by myself. Emergency Department Course and Treatment: Patient was given an injection of morphine here. Patient had some improvement of her pain. Patient was given a repeat dose of morphine. Patient was instructed to continue her tramadol as previously prescribed. Patient was instructed to follow-up with her pain management physician and primary care physician for further management of her chronic neck pain. Patient understands and is agreeable with the plan. All questions were answered. Disposition: Discharge home Impression: Acute cervical strain This note was generated with appssavvy dictation software. It may contain incorrect words, spelling, and punctuation that were not noted in review of the chart prior to signing ED Disposition - Plan for ED Patient: Disposition: Home or Assisted Living Diagnosis: Acute cervical myofascial strain Instructions: BACK PAIN (Acute or Chronic), Neck Sprain/Strain Referrals: Roberto Chavez MD [Primary Care Provider] - 3-5 Days Imani Caldera MD [STAFF PHYSICIAN] - 5-7 Days
[2019-10-21] MEDS: Morphine 4 MG/ML Syringe IM ×2 (13:23→14:51)
[2019-10-21 15:21] VITALS: BP 121/79; PULSE 89; RESP 16; O2SAT 99
== END 2019-10-21 15:22 | disposition home or self-care (01) ==
PROVIDERS: Emergency Provider Emergency Medicine; PCP Family Medicine
DX: S16.1XXA Strain of muscle, fascia and tendon at neck level, initial encounter (principal); M62.830 Muscle spasm of back; X58.XXXA Exposure to other specified factors, initial encounter; Y93.9 Activity, unspecified; Y92.9 Unspecified place or not applicable; Y99.9 Unspecified external cause status; J44.9 Chronic obstructive pulmonary disease, unspecified; I10 Essential (primary) hypertension; M79.7 Fibromyalgia; G25.81 Restless legs syndrome; G47.33 Obstructive sleep apnea (adult) (pediatric); F32.9 Major depressive disorder, single episode, unspecified; Z72.0 Tobacco use; Z79.52 Long term (current) use of systemic steroids; Z79.899 Other long term (current) drug therapy
CPT/HCPCS: 72125; 96372; 99283

== ENCOUNTER → 2019-12-26 12:43 | Outpatient (CLI) | payer MEDICARE, BC, SELFPAY ==
[2019-12-26 15:02] LABS: Absolute Lymphocyte Count 1.73 X10^3/uL (0.83-4.51); Absolute Neutrophil Count 3.1 X10^3/uL (2.0-7.7); Basophil# 0.06 X10^3/uL; Basophil% 0.9 % (0-1); Eosinophil# 0.79 X10^3/uL; Eosinophils% 12.4 % (0-5); Hematocrit 44.1 % (37-47); Hemoglobin 13.9 g/dL (12.0-15.0); Lymphocyte # 1.73 X10^3/ul (4.0); Lymphocyte % 27.1 % (19-41); Mean Corp Hgb Conc 31.5 g/dL (32-36); Mean Corpuscular Hgb 29.1 pg (27.0-32.0); Mean Corpuscular Volume 92.3 fL (81-99); Mean Platelet Vol. 10.6 fl (6.2-12.0); Monocyte# 0.75 X10^3/uL; Monocyte% 11.7 % (0-10); NRBC Flagged by Analyzer 0 % (0-5); Neutrophil # 3.05 X10^3/uL (2.7-7.7); Neutrophil % 47.7 % (47-70); Platelet Count 265 K/mm3 (150-450); RBC Distribution Width CV 14.7 % (11.6-14.6); RBC Distribution Width SD 50.4 fl (35.1-43.9); Red Blood Count 4.78 M/mm3 (4.2-5.4); White Blood Count 6.4 K/mm3 (4.4-11.0)
[2019-12-26 15:15] LABS: ALB/GLOB Ratio 0.9 RATIO (0.9-2.4); AST(SGOT) 19 U/L (15-37); Alanine Aminotransfer ALT/SGPT 26 U/L (13-56); Albumin, Serum 3.5 g/dL (3.2-5.0); Alkaline Phosphatase 71 U/L (45-117); Anion Gap 3 (5-15); BUN 7 mg/dL (7-18); BUN/Creat Ratio 10.2 RATIO (10-20); Calcium,Total 9.2 mg/dL (8.5-10.1); Chloride 106 mmol/L (98-107); Creatinine, Serum 0.68 mg/dL (0.55-1.02); EST Glomerular Filtration Rate 93 mL/min (>60); Est Glom Filt Rate - Afr Amer 112 mL/min (>60); Globulin 3.7 g/dL (2.2-4.2); Glucose 83 mg/dL (74-106); Potassium 4.1 mmol/L (3.5-5.1); Protein, Total 7.2 g/dL (6.4-8.2); Sodium Level 139 mmol/L (136-145)
== END ==
PROVIDERS: PCP Family Medicine; Referring Provider Internal Medicine Rheumatology; Visit Provider Internal Medicine Rheumatology
DX: M06.00 Rheumatoid arthritis without rheumatoid factor, unspecified site (principal); M75.121 Complete rotator cuff tear or rupture of right shoulder, not specified as traumatic; M79.7 Fibromyalgia; M47.897 Other spondylosis, lumbosacral region; I10 Essential (primary) hypertension; E78.5 Hyperlipidemia, unspecified; E03.9 Hypothyroidism, unspecified; Z79.899 Other long term (current) drug therapy
CPT/HCPCS: 36415; 80053; 85025

== ENCOUNTER → 2020-03-13 12:53 | Outpatient (CLI) | payer MEDICARE, BC, SELFPAY ==
[2020-03-13 15:13] LABS: Absolute Neutrophil Count 4.3 X10^3/uL (2.0-7.7); Basophil# 0.04 X10^3/uL; Basophil% 0.6 % (0-1); Eosinophil# 0.07 X10^3/uL; Hematocrit 43.3 % (37-47); Hemoglobin 13.6 g/dL (12.0-15.0); Lymphocyte % 24.9 % (19-41); Mean Corp Hgb Conc 31.4 g/dL (32-36); Mean Corpuscular Hgb 29.8 pg (27.0-32.0); Mean Corpuscular Volume 94.7 fL (81-99); Mean Platelet Vol. 10.9 fl (6.2-12.0); Monocyte# 0.73 X10^3/uL; Monocyte% 10.7 % (0-10); NRBC Flagged by Analyzer 0 % (0-5); Neutrophil # 4.26 X10^3/uL (2.7-7.7); Neutrophil % 62.4 % (47-70); Platelet Count 262 K/mm3 (150-450); RBC Distribution Width CV 14.1 % (11.6-14.6); RBC Distribution Width SD 49.3 fl (35.1-43.9); Red Blood Count 4.57 M/mm3 (4.2-5.4); White Blood Count 6.8 K/mm3 (4.4-11.0)
[2020-03-13 15:44] LABS: ALB/GLOB Ratio 0.9 RATIO (0.9-2.4); AST(SGOT) 19 U/L (15-37); Alanine Aminotransfer ALT/SGPT 24 U/L (13-56); Albumin, Serum 3.4 g/dL (3.2-5.0); Alkaline Phosphatase 78 U/L (45-117); Anion Gap 6 (5-15); BUN 8 mg/dL (7-18); Calcium,Total 9.1 mg/dL (8.5-10.1); Chloride 107 mmol/L (98-107); Creatinine, Serum 0.57 mg/dL (0.55-1.02); EST Glomerular Filtration Rate 114 mL/min (>60); Est Glom Filt Rate - Afr Amer 137 mL/min (>60); Globulin 3.6 g/dL (2.2-4.2); Glucose 96 mg/dL (74-106); Potassium 4.1 mmol/L (3.5-5.1); Sodium Level 139 mmol/L (136-145)
== END ==
PROVIDERS: PCP Family Medicine; Referring Provider Internal Medicine Rheumatology; Visit Provider Internal Medicine Rheumatology
DX: M06.00 Rheumatoid arthritis without rheumatoid factor, unspecified site (principal); M79.7 Fibromyalgia; M75.121 Complete rotator cuff tear or rupture of right shoulder, not specified as traumatic; M75.122 Complete rotator cuff tear or rupture of left shoulder, not specified as traumatic; M47.892 Other spondylosis, cervical region; M47.897 Other spondylosis, lumbosacral region; I10 Essential (primary) hypertension; E78.5 Hyperlipidemia, unspecified; E03.9 Hypothyroidism, unspecified; Z79.899 Other long term (current) drug therapy
CPT/HCPCS: 36415; 80053; 85025

== ENCOUNTER → 2020-05-30 12:59 | Outpatient (CLI) | payer MEDICARE, BC, SELFPAY ==
[2020-05-30 15:15] LABS: Absolute Lymphocyte Count 1.46 X10^3/uL (0.83-4.51); Basophil# 0.04 X10^3/uL; Basophil% 0.7 % (0-1); Eosinophil# 0.99 X10^3/uL; Eosinophils% 16.1 % (0-5); Hematocrit 45.6 % (37-47); Hemoglobin 14.2 g/dL (12.0-15.0); Lymphocyte # 1.46 X10^3/ul (4.0); Lymphocyte % 23.7 % (19-41); Mean Corp Hgb Conc 31.1 g/dL (32-36); Mean Corpuscular Hgb 29.1 pg (27.0-32.0); Mean Corpuscular Volume 93.4 fL (81-99); Mean Platelet Vol. 10.9 fl (6.2-12.0); Monocyte# 0.69 X10^3/uL; Monocyte% 11.2 % (0-10); NRBC Flagged by Analyzer 0 % (0-5); Neutrophil # 2.95 X10^3/uL (2.7-7.7); Platelet Count 274 K/mm3 (150-450); RBC Distribution Width CV 14.5 % (11.6-14.6); RBC Distribution Width SD 49.7 fl (35.1-43.9); Red Blood Count 4.88 M/mm3 (4.2-5.4); White Blood Count 6.2 K/mm3 (4.4-11.0)
[2020-05-30 15:36] LABS: AST(SGOT) 18 U/L (15-37); Alanine Aminotransfer ALT/SGPT 27 U/L (13-56); Albumin, Serum 3.6 g/dL (3.2-5.0); Alkaline Phosphatase 69 U/L (45-117); Anion Gap 1 (5-15); BUN 7 mg/dL (7-18); BUN/Creat Ratio 11.2 RATIO (10-20); Calcium,Total 9.2 mg/dL (8.5-10.1); Chloride 104 mmol/L (98-107); Creatinine, Serum 0.62 mg/dL (0.55-1.02); EST Glomerular Filtration Rate 103 mL/min (>60); Est Glom Filt Rate - Afr Amer 125 mL/min (>60); Globulin 3.5 g/dL (2.2-4.2); Glucose 82 mg/dL (74-106); Potassium 4.3 mmol/L (3.5-5.1); Protein, Total 7.1 g/dL (6.4-8.2); Sodium Level 138 mmol/L (136-145)
== END ==
PROVIDERS: PCP Family Medicine; Referring Provider Internal Medicine Rheumatology; Visit Provider Internal Medicine Rheumatology
DX: M06.00 Rheumatoid arthritis without rheumatoid factor, unspecified site (principal); M79.7 Fibromyalgia; M75.121 Complete rotator cuff tear or rupture of right shoulder, not specified as traumatic; M47.892 Other spondylosis, cervical region; M47.897 Other spondylosis, lumbosacral region; I10 Essential (primary) hypertension; E78.5 Hyperlipidemia, unspecified; E03.9 Hypothyroidism, unspecified; Z79.899 Other long term (current) drug therapy
CPT/HCPCS: 36415; 80053; 85025

== ENCOUNTER → 2020-07-10 13:11 | Outpatient (CLI) | payer MEDICARE, BC, SELFPAY ==
--- NOTE | 2020-07-10 13:14 | BI_ITS ---
MAMMOGRAPHY - BILATERAL SCREENING REASON FOR EXAM: Female, 60 years old. Routine annual screening examination. PERTINENT HISTORY: Non-contributory. TECHNIQUE: Digital bilateral breast david (3D mammographic acquisition) in the CC and MLO projections. 2-D mediolateral oblique (MLO) and craniocaudad (CC) views of both breasts were obtained. CAD: Full Field Digital Mammography with Computer Added Detection was performed. COMPARISON: Comparison is made with prior study dated 07/09/2019 and 06/08/2018. FINDINGS: Breast Composition: There are scattered areas of fibroglandular density. There are no dominant masses or suspicious calcifications. Stable benign-appearing bilateral axillary No other significant abnormalities are identified. There has been no significant change since the prior study. BI/SCRN MAMM (CAD)W/DAVID BILAT IMPRESSION: Stable bilateral screening mammogram. Yearly follow-up mammogram recommended. (A) ASSESSMENT CATEGORY: BIRADS Category 2: Benign. A letter regarding these results will be sent to the patient by the facility within 30 days. Approximately 10% of breast cancers are not detected by mammography. A normal mammogram should not delay biopsy of a clinically suspicious abnormality. [id number] Electronically Signed: Gennaro Pendleton, at 14:12 EST , Service support ,
[2020-07-16 13:00] LABS: HPV APTIMA, High Risk Negative (Negative)
== END ==
PROVIDERS: PCP Family Medicine; Referring Provider Nurse Practitioner Women's Health; Visit Provider Nurse Practitioner Women's Health
DX: Z12.31 Encounter for screening mammogram for malignant neoplasm of breast (principal); Z12.4 Encounter for screening for malignant neoplasm of cervix; N89.9 Noninflammatory disorder of vagina, unspecified
CPT/HCPCS: 77063; 77067; 87624; 88175; G0145

== ENCOUNTER → 2020-08-13 14:10 | Outpatient (CLI) | payer MEDICARE, BC, SELFPAY ==
[2020-07-10 13:42] VITALS: BMI 37.0
[2020-08-13 15:42] LABS: Absolute Lymphocyte Count 1.41 X10^3/uL (0.83-4.51); Absolute Neutrophil Count 3.4 X10^3/uL (2.0-7.7); Basophil# 0.05 X10^3/uL; Basophil% 0.9 % (0-1); Eosinophil# 0.06 X10^3/uL; Eosinophils% 1.1 % (0-5); Hemoglobin 14.9 g/dL (12.0-15.0); Lymphocyte # 1.41 X10^3/ul (4.0); Lymphocyte % 25.4 % (19-41); Mean Corp Hgb Conc 32.4 g/dL (32-36); Mean Corpuscular Hgb 29.8 pg (27.0-32.0); Mean Platelet Vol. 10.8 fl (6.2-12.0); Monocyte# 0.67 X10^3/uL; Monocyte% 12.1 % (0-10); NRBC Flagged by Analyzer 0 % (0-5); Neutrophil # 3.35 X10^3/uL (2.7-7.7); Neutrophil % 60.1 % (47-70); Platelet Count 268 K/mm3 (150-450); RBC Distribution Width CV 14.4 % (11.6-14.6); RBC Distribution Width SD 48.7 fl (35.1-43.9); White Blood Count 5.6 K/mm3 (4.4-11.0)
[2020-08-13 16:08] LABS: ALB/GLOB Ratio 1.1 RATIO (0.9-2.4); AST(SGOT) 22 U/L (15-37); Alanine Aminotransfer ALT/SGPT 29 U/L (13-56); Albumin, Serum 3.9 g/dL (3.2-5.0); Alkaline Phosphatase 74 U/L (45-117); Anion Gap 4 (5-15); BUN 10 mg/dL (7-18); BUN/Creat Ratio 14.8 RATIO (10-20); Calcium,Total 9.4 mg/dL (8.5-10.1); Chloride 105 mmol/L (98-107); Creatinine, Serum 0.67 mg/dL (0.55-1.02); EST Glomerular Filtration Rate 94 mL/min (>60); Est Glom Filt Rate - Afr Amer 114 mL/min (>60); Globulin 3.4 g/dL (2.2-4.2); Glucose 79 mg/dL (74-106); Protein, Total 7.3 g/dL (6.4-8.2); Sodium Level 140 mmol/L (136-145)
== END ==
PROVIDERS: PCP Family Medicine; Referring Provider Internal Medicine Rheumatology; Visit Provider Internal Medicine Rheumatology
DX: M06.00 Rheumatoid arthritis without rheumatoid factor, unspecified site (principal); M79.7 Fibromyalgia; M75.121 Complete rotator cuff tear or rupture of right shoulder, not specified as traumatic; M47.892 Other spondylosis, cervical region; M47.897 Other spondylosis, lumbosacral region; I10 Essential (primary) hypertension; E78.5 Hyperlipidemia, unspecified; E03.9 Hypothyroidism, unspecified; Z79.899 Other long term (current) drug therapy
CPT/HCPCS: 36415; 80053; 85025

== ENCOUNTER → 2020-11-05 13:04 | Outpatient (CLI) | payer MEDICARE, BC, SELFPAY ==
[2020-07-10 13:42] VITALS: BMI 37.0
[2020-11-05 15:28] LABS: Absolute Lymphocyte Count 1.54 X10^3/uL (0.83-4.51); Basophil# 0.05 X10^3/uL; Basophil% 0.7 % (0-1); Eosinophil# 0.07 X10^3/uL; Eosinophils% 0.9 % (0-5); Hematocrit 45.3 % (37-47); Hemoglobin 14.3 g/dL (12.0-15.0); Lymphocyte # 1.54 X10^3/ul (4.0); Lymphocyte % 20.6 % (19-41); Mean Corp Hgb Conc 31.6 g/dL (32-36); Mean Corpuscular Hgb 28.5 pg (27.0-32.0); Mean Corpuscular Volume 90.2 fL (81-99); Monocyte# 0.78 X10^3/uL; Monocyte% 10.4 % (0-10); NRBC Flagged by Analyzer 0 % (0-5); Platelet Count 270 K/mm3 (150-450); RBC Distribution Width CV 14.5 % (11.6-14.6); RBC Distribution Width SD 48.1 fl (35.1-43.9); Red Blood Count 5.02 M/mm3 (4.2-5.4); White Blood Count 7.5 K/mm3 (4.4-11.0)
[2020-11-05 16:09] LABS: AST(SGOT) 18 U/L (15-37); Alanine Aminotransfer ALT/SGPT 25 U/L (13-56); Albumin, Serum 3.6 g/dL (3.2-5.0); Alkaline Phosphatase 74 U/L (45-117); Anion Gap 4 (5-15); BUN 7 mg/dL (7-18); BUN/Creat Ratio 10.1 RATIO (10-20); Calcium,Total 9.3 mg/dL (8.5-10.1); Chloride 104 mmol/L (98-107); EST Glomerular Filtration Rate 91 mL/min (>60); Est Glom Filt Rate - Afr Amer 110 mL/min (>60); Globulin 3.7 g/dL (2.2-4.2); Glucose 82 mg/dL (74-106); Potassium 4.3 mmol/L (3.5-5.1); Protein, Total 7.3 g/dL (6.4-8.2); Sodium Level 139 mmol/L (136-145)
== END ==
PROVIDERS: PCP Family Medicine; Referring Provider Internal Medicine Rheumatology; Visit Provider Internal Medicine Rheumatology
DX: M06.00 Rheumatoid arthritis without rheumatoid factor, unspecified site (principal); M79.7 Fibromyalgia; M75.121 Complete rotator cuff tear or rupture of right shoulder, not specified as traumatic; M47.892 Other spondylosis, cervical region; M47.897 Other spondylosis, lumbosacral region; I10 Essential (primary) hypertension; E78.5 Hyperlipidemia, unspecified; E03.9 Hypothyroidism, unspecified; Z79.899 Other long term (current) drug therapy
CPT/HCPCS: 36415; 80053; 85025

== ENCOUNTER → 2021-02-04 14:33 | Outpatient (CLI) | payer MEDICARE, BC, SELFPAY ==
[2020-07-10 13:42] VITALS: BMI 37.0
[2021-02-04 17:49] LABS: Absolute Lymphocyte Count 1.51 X10^3/uL (0.83-4.51); Absolute Neutrophil Count 4.1 X10^3/uL (2.0-7.7); Basophil# 0.03 X10^3/uL; Basophil% 0.5 % (0-1); Eosinophil# 0.03 X10^3/uL; Eosinophils% 0.5 % (0-5); Hematocrit 44.4 % (37-47); Lymphocyte # 1.51 X10^3/ul (0.83-4.51); Lymphocyte % 24.1 % (19-41); Mean Corp Hgb Conc 31.5 g/dL (32-36); Mean Corpuscular Hgb 28.4 pg (27.0-32.0); Mean Corpuscular Volume 90.1 fL (81-99); Mean Platelet Vol. 10.9 fl (6.2-12.0); Monocyte# 0.63 X10^3/uL; NRBC Flagged by Analyzer 0 % (0-5); Neutrophil # 4.05 X10^3/uL (2.7-7.7); Neutrophil % 64.6 % (47-70); Platelet Count 256 K/mm3 (150-450); RBC Distribution Width CV 14.5 % (11.6-14.6); RBC Distribution Width SD 47.4 fl (35.1-43.9); Red Blood Count 4.93 M/mm3 (4.2-5.4); White Blood Count 6.3 K/mm3 (4.4-11.0)
[2021-02-04 18:03] LABS: AST(SGOT) 23 U/L (15-37); Alanine Aminotransfer ALT/SGPT 27 U/L (13-56); Albumin, Serum 3.5 g/dL (3.2-5.0); Alkaline Phosphatase 75 U/L (45-117); Anion Gap 7 (5-15); BUN 9 mg/dL (7-18); BUN/Creat Ratio 13.8 RATIO (10-20); Calcium,Total 9.2 mg/dL (8.5-10.1); Chloride 103 mmol/L (98-107); Creatinine, Serum 0.65 mg/dL (0.55-1.02); EST Glomerular Filtration Rate 98 mL/min (>60); Est Glom Filt Rate - Afr Amer 119 mL/min (>60); Globulin 3.4 g/dL (2.2-4.2); Glucose 118 mg/dL (74-106); Protein, Total 6.9 g/dL (6.4-8.2); Sodium Level 141 mmol/L (136-145)
== END ==
PROVIDERS: PCP Family Medicine; Referring Provider Internal Medicine Rheumatology; Visit Provider Internal Medicine Rheumatology
DX: M06.00 Rheumatoid arthritis without rheumatoid factor, unspecified site (principal); M79.7 Fibromyalgia; M16.11 Unilateral primary osteoarthritis, right hip; M75.121 Complete rotator cuff tear or rupture of right shoulder, not specified as traumatic; M75.122 Complete rotator cuff tear or rupture of left shoulder, not specified as traumatic; M47.897 Other spondylosis, lumbosacral region; M47.892 Other spondylosis, cervical region; I10 Essential (primary) hypertension; E03.9 Hypothyroidism, unspecified; E78.5 Hyperlipidemia, unspecified; Z79.899 Other long term (current) drug therapy
CPT/HCPCS: 36415; 80053; 85025

== ENCOUNTER → 2021-05-07 13:31 | Outpatient (CLI) | payer MEDICARE, BC, SELFPAY ==
[2021-05-07 15:12] LABS: Absolute Lymphocyte Count 1.42 X10^3/uL (0.83-4.51); Absolute Neutrophil Count 3.7 X10^3/uL (2.0-7.7); Basophil# 0.03 X10^3/uL; Basophil% 0.5 % (0-1); Eosinophil# 0.08 X10^3/uL; Eosinophils% 1.4 % (0-5); Hematocrit 41.9 % (37-47); Hemoglobin 13.9 g/dL (12.0-15.0); Lymphocyte # 1.42 X10^3/ul (0.83-4.51); Lymphocyte % 24.1 % (19-41); Mean Corp Hgb Conc 33.2 g/dL (32-36); Mean Corpuscular Hgb 29.6 pg (27.0-32.0); Mean Corpuscular Volume 89.3 fL (81-99); Mean Platelet Vol. 10.7 fl (6.2-12.0); Monocyte# 0.69 X10^3/uL; Monocyte% 11.7 % (0-10); NRBC Flagged by Analyzer 0 % (0-5); Neutrophil # 3.65 X10^3/uL (2.7-7.7); Neutrophil % 62.1 % (47-70); Platelet Count 259 K/mm3 (150-450); RBC Distribution Width CV 14.4 % (11.6-14.6); RBC Distribution Width SD 46.8 fl (35.1-43.9); Red Blood Count 4.69 M/mm3 (4.2-5.4); White Blood Count 5.9 K/mm3 (4.4-11.0)
[2021-05-07 15:39] LABS: ALB/GLOB Ratio 0.9 RATIO (0.9-2.4); AST(SGOT) 20 U/L (15-37); Alanine Aminotransfer ALT/SGPT 27 U/L (13-56); Albumin, Serum 3.4 g/dL (3.2-5.0); Alkaline Phosphatase 71 U/L (45-117); Anion Gap 2 (5-15); BUN 6 mg/dL (7-18); BUN/Creat Ratio 10.8 RATIO (10-20); Calcium,Total 9.1 mg/dL (8.5-10.1); Chloride 107 mmol/L (98-107); Creatinine, Serum 0.56 mg/dL (0.55-1.02); EST Glomerular Filtration Rate 117 mL/min (>60); Est Glom Filt Rate - Afr Amer 142 mL/min (>60); Globulin 3.6 g/dL (2.2-4.2); Glucose 85 mg/dL (74-106); Potassium 4.3 mmol/L (3.5-5.1); Sodium Level 139 mmol/L (136-145)
== END ==
PROVIDERS: PCP Family Medicine; Referring Provider Internal Medicine Rheumatology; Visit Provider Internal Medicine Rheumatology
DX: M06.00 Rheumatoid arthritis without rheumatoid factor, unspecified site (principal); Z79.899 Other long term (current) drug therapy; M79.7 Fibromyalgia; M16.11 Unilateral primary osteoarthritis, right hip; M75.121 Complete rotator cuff tear or rupture of right shoulder, not specified as traumatic; M47.897 Other spondylosis, lumbosacral region; M47.892 Other spondylosis, cervical region; I10 Essential (primary) hypertension; E03.9 Hypothyroidism, unspecified; E78.5 Hyperlipidemia, unspecified
CPT/HCPCS: 36415; 80053; 85025

== ENCOUNTER → 2021-07-15 12:50 | Outpatient (CLI) | payer MEDICARE, BC, SELFPAY ==
--- NOTE | 2021-07-15 12:52 | BI_ITS ---
MAMMOGRAPHY - BILATERAL SCREENING REASON FOR EXAM: Female, 61 years old. Routine annual screening examination. PERTINENT HISTORY: Non-contributory. TECHNIQUE: Digital bilateral breast david (3D mammographic acquisition) in the CC and MLO projections. 2-D mediolateral oblique (MLO) and craniocaudad (CC) views of both breasts were obtained. CAD: Full Field Digital Mammography with Computer Added Detection was performed. COMPARISON: Comparison is made with prior study dated 07/10/2020 and 07/09/2019. FINDINGS: Breast Composition: There are scattered areas of fibroglandular density. There are no dominant masses or suspicious calcifications. Stable small benign-appearing bilateral axillary lymph nodes. No other significant abnormalities are identified. There has been no significant change since the prior study. BI/SCRN MAMM (CAD)W/DAVID BILAT IMPRESSION: Stable bilateral screening mammogram. Yearly follow-up mammogram recommended. (A) ASSESSMENT CATEGORY: BIRADS Category 2: Benign. A letter regarding these results will be sent to the patient by the facility within 30 days. Approximately 10% of breast cancers are not detected by mammography. A normal mammogram should not delay biopsy of a clinically suspicious abnormality. [id number] Electronically Signed: Gennaro Pendleton MD at 13:30 EST , Service support ,
== END ==
PROVIDERS: PCP Family Medicine; Referring Provider Family Medicine; Visit Provider Family Medicine
DX: Z12.31 Encounter for screening mammogram for malignant neoplasm of breast (principal)
CPT/HCPCS: 77063; 77067

== ENCOUNTER → 2021-08-05 11:59 | Outpatient (CLI) | payer MEDICARE, BC, SELFPAY ==
[2021-08-05 15:00] LABS: Absolute Lymphocyte Count 1.08 X10^3/uL (0.83-4.51); Absolute Neutrophil Count 3.7 X10^3/uL (2.0-7.7); Basophil# 0.04 X10^3/uL; Basophil% 0.7 % (0-1); Eosinophil# 0.07 X10^3/uL; Eosinophils% 1.3 % (0-5); Hematocrit 42.5 % (37-47); Hemoglobin 13.8 g/dL (12.0-15.0); Lymphocyte # 1.08 X10^3/ul (0.83-4.51); Mean Corp Hgb Conc 32.5 g/dL (32-36); Mean Corpuscular Hgb 29.1 pg (27.0-32.0); Mean Corpuscular Volume 89.5 fL (81-99); Mean Platelet Vol. 10.6 fl (6.2-12.0); Monocyte# 0.54 X10^3/uL; NRBC Flagged by Analyzer 0 % (0-5); Neutrophil # 3.66 X10^3/uL (2.7-7.7); Neutrophil % 67.6 % (47-70); Platelet Count 262 K/mm3 (150-450); RBC Distribution Width CV 14.2 % (11.6-14.6); RBC Distribution Width SD 47.4 fl (35.1-43.9); Red Blood Count 4.75 M/mm3 (4.2-5.4); White Blood Count 5.4 K/mm3 (4.4-11.0)
[2021-08-05 15:31] LABS: AST(SGOT) 20 U/L (15-37); Alanine Aminotransfer ALT/SGPT 26 U/L (13-56); Albumin, Serum 3.5 g/dL (3.2-5.0); Alkaline Phosphatase 67 U/L (45-117); Anion Gap 6 (5-15); BUN 8 mg/dL (7-18); BUN/Creat Ratio 14.9 RATIO (10-20); Calcium,Total 9.4 mg/dL (8.5-10.1); Chloride 104 mmol/L (98-107); Creatinine, Serum 0.54 mg/dL (0.55-1.02); EST Glomerular Filtration Rate 122 mL/min (>60); Est Glom Filt Rate - Afr Amer 148 mL/min (>60); Globulin 3.4 g/dL (2.2-4.2); Glucose 83 mg/dL (74-106); Protein, Total 6.9 g/dL (6.4-8.2); Sodium Level 140 mmol/L (136-145)
== END ==
PROVIDERS: PCP Family Medicine; Referring Provider Internal Medicine Rheumatology; Visit Provider Internal Medicine Rheumatology
DX: M06.00 Rheumatoid arthritis without rheumatoid factor, unspecified site (principal); M79.7 Fibromyalgia; M16.11 Unilateral primary osteoarthritis, right hip; M75.121 Complete rotator cuff tear or rupture of right shoulder, not specified as traumatic; M47.897 Other spondylosis, lumbosacral region; M47.892 Other spondylosis, cervical region; I10 Essential (primary) hypertension; E03.9 Hypothyroidism, unspecified; E78.5 Hyperlipidemia, unspecified; Z79.899 Other long term (current) drug therapy
CPT/HCPCS: 36415; 80053; 85025

== ENCOUNTER 2021-11-05 14:16 | Outpatient (CLI) | payer MEDICARE, BC, SELFPAY ==
[2021-11-05 18:01] LABS: Absolute Lymphocyte Count 1.42 X10^3/uL (0.83-4.51); Absolute Neutrophil Count 3.8 X10^3/uL (2.0-7.7); Basophil# 0.05 X10^3/uL; Basophil% 0.8 % (0-1); Eosinophil# 0.09 X10^3/uL; Eosinophils% 1.5 % (0-5); Hematocrit 43.7 % (37-47); Hemoglobin 14.3 g/dL (12.0-15.0); Lymphocyte # 1.42 X10^3/ul (0.83-4.51); Lymphocyte % 23.7 % (19-41); Mean Corp Hgb Conc 32.7 g/dL (32-36); Mean Corpuscular Hgb 29.7 pg (27.0-32.0); Mean Corpuscular Volume 90.9 fL (81-99); Mean Platelet Vol. 11.2 fl (6.2-12.0); Monocyte# 0.61 X10^3/uL; Monocyte% 10.2 % (0-10); NRBC Flagged by Analyzer 0 % (0-5); Neutrophil % 63.6 % (47-70); Platelet Count 260 K/mm3 (150-450); RBC Distribution Width SD 47.5 fl (35.1-43.9); Red Blood Count 4.81 M/mm3 (4.2-5.4)
[2021-11-05 18:11] LABS: AST(SGOT) 18 U/L (15-37); Alanine Aminotransfer ALT/SGPT 29 U/L (13-56); Albumin, Serum 3.6 g/dL (3.2-5.0); Alkaline Phosphatase 80 U/L (45-117); Anion Gap 3 (5-15); BUN 9 mg/dL (7-18); BUN/Creat Ratio 13.8 RATIO (10-20); Chloride 104 mmol/L (98-107); Creatinine, Serum 0.65 mg/dL (0.55-1.02); EST Glomerular Filtration Rate 97 mL/min (>60); Est Glom Filt Rate - Afr Amer 118 mL/min (>60); Globulin 3.5 g/dL (2.2-4.2); Glucose 122 mg/dL (74-106); Protein, Total 7.1 g/dL (6.4-8.2); Sodium Level 139 mmol/L (136-145)
== END 2021-11-05 23:59 | disposition home or self-care (01) ==
LOC: MTLAB 14:19
PROVIDERS: PCP Family Medicine; Referring Provider Internal Medicine Rheumatology; Visit Provider Internal Medicine Rheumatology
DX: M06.00 Rheumatoid arthritis without rheumatoid factor, unspecified site (principal); M79.7 Fibromyalgia; M16.11 Unilateral primary osteoarthritis, right hip; M75.121 Complete rotator cuff tear or rupture of right shoulder, not specified as traumatic; M47.897 Other spondylosis, lumbosacral region; M47.892 Other spondylosis, cervical region; Z79.899 Other long term (current) drug therapy
CPT/HCPCS: 36415; 80053; 85025

== ENCOUNTER → 2022-02-03 | Outpatient (CLI) | payer MEDICARE, BC, SELFPAY ==
--- NOTE | 2022-02-03 09:15 | TELEMED_ITS ---
[facility] has confirmed receipt of a request for visit. This document confirms receipt of the order initiating the consult. To find the results of the consultation, please view the patient's reports for the scanned Telemed Consult.
[2022-02-03 10:28] LABS: Absolute Lymphocyte Count 1.98 X10^3/uL (0.83-4.51); Absolute Neutrophil Count 3.7 X10^3/uL (2.0-7.7); Basophil# 0.04 X10^3/uL; Basophil% 0.6 % (0-1); Eosinophils% 1.5 % (0-5); Hematocrit 42.2 % (37-47); Hemoglobin 13.4 g/dL (12.0-15.0); Lymphocyte # 1.98 X10^3/ul (0.83-4.51); Lymphocyte % 29.6 % (19-41); Mean Corp Hgb Conc 31.8 g/dL (32-36); Mean Corpuscular Hgb 29.4 pg (27.0-32.0); Mean Corpuscular Volume 92.5 fL (81-99); Mean Platelet Vol. 10.8 fl (6.2-12.0); Monocyte# 0.88 X10^3/uL; Monocyte% 13.2 % (0-10); NRBC Flagged by Analyzer 0 % (0-5); Neutrophil # 3.68 X10^3/uL (2.7-7.7); Platelet Count 252 K/mm3 (150-450); RBC Distribution Width CV 14.5 % (11.6-14.6); RBC Distribution Width SD 49.6 fl (35.1-43.9); Red Blood Count 4.56 M/mm3 (4.2-5.4); White Blood Count 6.7 K/mm3 (4.4-11.0)
[2022-02-03 11:09] LABS: ALB/GLOB Ratio 1.1 RATIO (0.9-2.4); AST(SGOT) 20 U/L (15-37); Alanine Aminotransfer ALT/SGPT 26 U/L (13-56); Albumin, Serum 3.6 g/dL (3.2-5.0); Alkaline Phosphatase 79 U/L (45-117); Anion Gap 5 (5-15); BUN 9 mg/dL (7-18); BUN/Creat Ratio 15.4 RATIO (10-20); Calcium,Total 9.2 mg/dL (8.5-10.1); Chloride 105 mmol/L (98-107); Creatinine, Serum 0.58 mg/dL (0.55-1.02); EST Glomerular Filtration Rate 110 mL/min (>60); Est Glom Filt Rate - Afr Amer 134 mL/min (>60); Globulin 3.2 g/dL (2.2-4.2); Glucose 88 mg/dL (74-106); Potassium 4.1 mmol/L (3.5-5.1); Protein, Total 6.8 g/dL (6.4-8.2); Sodium Level 138 mmol/L (136-145)
== END | disposition home or self-care (01) ==
PROVIDERS: Internal Medicine Rheumatology; PCP Family Medicine; Referring Provider Family Medicine; Visit Provider Family Medicine
DX: R55 Syncope and collapse (principal); M06.4 Inflammatory polyarthropathy; M79.7 Fibromyalgia; M16.11 Unilateral primary osteoarthritis, right hip; M75.121 Complete rotator cuff tear or rupture of right shoulder, not specified as traumatic; M47.897 Other spondylosis, lumbosacral region; M47.892 Other spondylosis, cervical region; I10 Essential (primary) hypertension; E03.9 Hypothyroidism, unspecified; E78.5 Hyperlipidemia, unspecified; Z79.899 Other long term (current) drug therapy
CPT/HCPCS: 36415; 80053; 85025; 95819

== ENCOUNTER → 2022-04-28 | Outpatient (CLI) | payer MEDICARE, BC, SELFPAY ==
[2022-04-28 18:03] LABS: Absolute Lymphocyte Count 1.36 X10^3/uL (0.83-4.51); Absolute Neutrophil Count 3.2 X10^3/uL (2.0-7.7); Basophil# 0.04 X10^3/uL; Basophil% 0.7 % (0-1); Eosinophil# 0.05 X10^3/uL; Eosinophils% 0.9 % (0-5); Hematocrit 41.5 % (37-47); Hemoglobin 13.6 g/dL (12.0-15.0); Lymphocyte # 1.36 X10^3/ul (0.83-4.51); Lymphocyte % 25.3 % (19-41); Mean Corp Hgb Conc 32.8 g/dL (32-36); Mean Corpuscular Hgb 29.6 pg (27.0-32.0); Mean Corpuscular Volume 90.2 fL (81-99); Monocyte# 0.68 X10^3/uL; Monocyte% 12.7 % (0-10); NRBC Flagged by Analyzer 0 % (0-5); Neutrophil # 3.24 X10^3/uL (2.7-7.7); Neutrophil % 60.4 % (47-70); Platelet Count 253 K/mm3 (150-450); RBC Distribution Width CV 14.3 % (11.6-14.6); RBC Distribution Width SD 47.8 fl (35.1-43.9); White Blood Count 5.4 K/mm3 (4.4-11.0)
[2022-04-28 18:27] LABS: AST(SGOT) 18 U/L (15-37); Alanine Aminotransfer ALT/SGPT 24 U/L (13-56); Albumin, Serum 3.5 g/dL (3.2-5.0); Alkaline Phosphatase 78 U/L (45-117); Anion Gap 7 (5-15); BUN 8 mg/dL (7-18); BUN/Creat Ratio 14.3 RATIO (10-20); Calcium,Total 9.2 mg/dL (8.5-10.1); Chloride 106 mmol/L (98-107); Creatinine, Serum 0.56 mg/dL (0.55-1.02); EST Glomerular Filtration Rate 116 mL/min (>60); Est Glom Filt Rate - Afr Amer 140 mL/min (>60); Globulin 3.5 g/dL (2.2-4.2); Glucose 97 mg/dL (74-106); Sodium Level 140 mmol/L (136-145)
== END | disposition home or self-care (01) ==
PROVIDERS: PCP Family Medicine; Referring Provider Internal Medicine Rheumatology; Visit Provider Internal Medicine Rheumatology
DX: M06.00 Rheumatoid arthritis without rheumatoid factor, unspecified site (principal); M79.7 Fibromyalgia; M16.11 Unilateral primary osteoarthritis, right hip; M75.121 Complete rotator cuff tear or rupture of right shoulder, not specified as traumatic; M47.897 Other spondylosis, lumbosacral region; M47.892 Other spondylosis, cervical region; I10 Essential (primary) hypertension; E03.9 Hypothyroidism, unspecified; E78.5 Hyperlipidemia, unspecified; Z79.899 Other long term (current) drug therapy
CPT/HCPCS: 36415; 80053; 85025

== ENCOUNTER → 2022-07-22 | Outpatient (CLI) | payer MEDICARE, BC, SELFPAY ==
--- NOTE | 2022-07-22 12:51 | BI_ITS ---
MAMMOGRAPHY - BILATERAL SCREENING REASON FOR EXAM: Female, 62 years old. Routine annual screening examination. PERTINENT HISTORY: Non-contributory. TECHNIQUE: Digital bilateral breast david (3D mammographic acquisition) in the CC and MLO projections. 2-D mediolateral oblique (MLO) and craniocaudad (CC) views of both breasts were obtained. CAD: Full Field Digital Mammography with Computer Added Detection was performed. COMPARISON: 07/15/2021, 07/10/2020. FINDINGS: Breast Composition: There are scattered areas of fibroglandular density. There are no dominant masses or suspicious calcifications. Stable small bilateral benign-appearing axillary lymph nodes. No other significant abnormalities are identified. There has been no significant change since the prior study. BI/SCRN MAMM (CAD)W/DAVID BILAT IMPRESSION: Stable bilateral screening mammogram. Yearly follow-up mammogram recommended. (A) ASSESSMENT CATEGORY: BIRADS Category 2: Benign. A letter regarding these results will be sent to the patient by the facility within 30 days. Approximately 10% of breast cancers are not detected by mammography. A normal mammogram should not delay biopsy of a clinically suspicious abnormality. Electronically Signed: Tim Lee, at 8:59 EST ,
== END | disposition home or self-care (01) ==
LOC: OPBI 12:51
PROVIDERS: PCP Family Medicine; Referring Provider Nurse Practitioner Women's Health; Visit Provider Nurse Practitioner Women's Health
DX: Z12.31 Encounter for screening mammogram for malignant neoplasm of breast (principal)
CPT/HCPCS: 77063; 77067

== ENCOUNTER → 2022-08-01 | Outpatient (CLI) | payer MEDICARE, BC, SELFPAY ==
[2022-08-01 18:03] LABS: Absolute Lymphocyte Count 1.86 X10^3/uL (0.83-4.51); Absolute Neutrophil Count 3.9 X10^3/uL (2.0-7.7); Basophil# 0.05 X10^3/uL; Basophil% 0.8 % (0-1); Eosinophil# 0.06 X10^3/uL; Eosinophils% 0.9 % (0-5); Hematocrit 45.3 % (37-47); Hemoglobin 14.1 g/dL (12.0-15.0); Lymphocyte # 1.86 X10^3/ul (0.83-4.51); Lymphocyte % 28.8 % (19-41); Mean Corp Hgb Conc 31.1 g/dL (32-36); Mean Corpuscular Hgb 28.2 pg (27.0-32.0); Mean Corpuscular Volume 90.6 fL (81-99); Mean Platelet Vol. 10.6 fl (6.2-12.0); Monocyte# 0.53 X10^3/uL; Monocyte% 8.2 % (0-10); NRBC Flagged by Analyzer 0 % (0-5); Neutrophil # 3.93 X10^3/uL (2.7-7.7); Platelet Count 299 K/mm3 (150-450); RBC Distribution Width CV 15.2 % (11.6-14.6); RBC Distribution Width SD 50.4 fl (35.1-43.9); White Blood Count 6.5 K/mm3 (4.4-11.0)
== END | disposition home or self-care (01) ==
LOC: MTLAB 14:26
PROVIDERS: PCP Family Medicine; Referring Provider Internal Medicine Rheumatology; Visit Provider Internal Medicine Rheumatology
DX: M06.00 Rheumatoid arthritis without rheumatoid factor, unspecified site (principal); M79.7 Fibromyalgia; M16.11 Unilateral primary osteoarthritis, right hip; M75.121 Complete rotator cuff tear or rupture of right shoulder, not specified as traumatic; M47.897 Other spondylosis, lumbosacral region; M47.892 Other spondylosis, cervical region; I10 Essential (primary) hypertension; E03.9 Hypothyroidism, unspecified; E78.5 Hyperlipidemia, unspecified; Z79.899 Other long term (current) drug therapy
CPT/HCPCS: 36415; 85025

== ENCOUNTER → 2022-08-29 | Outpatient (CLI) | payer MEDICARE, BC, SELFPAY ==
--- NOTE | 2022-08-29 13:00 | LIP_PTH ---
PATIENT: JOELLEN BERNABE LOC: [facility] U#:[id number] AGE/SX: 62/F ROOM: RE08/29/[address]: Dr. Disha Rios MD : 1960 BED: DIS: 08/29/2022 SPEC #: [id number] RECD: 09/02/22 09:32 STATUS: AMY RECarter #: [id number] DEVYN: 08/29/22 13:[address]: Disha Rios DEPT: SURGICAL PATHOLOGY RECD BY: Sofia Short ENTERED: 09/02/22 09:32 SP TYPE: LIPOMA OTHR DR: Dr. Roberto Chavez MD Tissues: Soft tissues, NOS Procedures: Surgery Specimen Level III HEADER OPERATION: Excision of left mons mass PRE-OP DIAGNOSIS: Left mons mass TISSUE SUBMITTED: Left mons tissue/lipoma MICROSCOPIC DIAGNOSIS Left mons tissue, excision: Mature adipose tissue consistent with lipoma. AM:benedicto 09/03/2022 COMMENT Case has been reviewed in consultation with Dr. Hartman who concurs with the above diagnosis. IDC:SJ MICROSCOPIC DESCRIPTION Slides are reviewed. GROSS DESCRIPTION Received in fixative is one container labeled with the patient's name and designated left mons tissue. The specimen consists of multiple irregular fragments of marie-yellow fatty tissue ranging in size from 2.5 to 7 cm. Dissection reveals yellow fatty cut surfaces without areas of cyst formation, necrosis or hemorrhage. Dietary Supervisor sections are submitted in three cassettes. / AM:rg 09/02/2022 TC:1 CPT: 36047
== END | disposition home or self-care (01) ==
LOC: LABSPEC 15:41
PROVIDERS: PCP Family Medicine; Referring Provider Surgery; Visit Provider Surgery
DX: D17.9 Benign lipomatous neoplasm, unspecified (principal)
CPT/HCPCS: 88304

== ENCOUNTER → 2022-10-20 | Outpatient (CLI) | payer MEDICARE, BC, SELFPAY ==
[2022-10-20 15:37] LABS: Absolute Lymphocyte Count 1.67 X10^3/uL (0.83-4.51); Absolute Neutrophil Count 3.9 X10^3/uL (2.0-7.7); Basophil# 0.05 X10^3/uL; Basophil% 0.8 % (0-1); Eosinophil# 0.08 X10^3/uL; Eosinophils% 1.3 % (0-5); Hematocrit 43.7 % (37-47); Hemoglobin 13.7 g/dL (12.0-15.0); Lymphocyte # 1.67 X10^3/ul (0.83-4.51); Lymphocyte % 26.7 % (19-41); Mean Corp Hgb Conc 31.4 g/dL (32-36); Mean Corpuscular Hgb 28.5 pg (27.0-32.0); Mean Platelet Vol. 10.4 fl (6.2-12.0); Monocyte# 0.56 X10^3/uL; NRBC Flagged by Analyzer 0 % (0-5); Neutrophil # 3.87 X10^3/uL (2.7-7.7); Neutrophil % 61.9 % (47-70); Platelet Count 282 K/mm3 (150-450); RBC Distribution Width CV 15.8 % (11.6-14.6); RBC Distribution Width SD 52.9 fl (35.1-43.9); White Blood Count 6.3 K/mm3 (4.4-11.0)
[2022-10-20 15:44] LABS: ALB/GLOB Ratio 1.1 RATIO (0.9-2.4); AST(SGOT) 21 U/L (15-37); Alanine Aminotransfer ALT/SGPT 25 U/L (13-56); Albumin, Serum 3.7 g/dL (3.2-5.0); Alkaline Phosphatase 68 U/L (45-117); Anion Gap 6 (5-15); BUN 9 mg/dL (7-18); BUN/Creat Ratio 14.4 RATIO (10-20); Calcium,Total 9.5 mg/dL (8.5-10.1); Chloride 104 mmol/L (98-107); Creatinine, Serum 0.62 mg/dL (0.55-1.02); EST Glomerular Filtration Rate 102 mL/min (>60); Est Glom Filt Rate - Afr Amer 124 mL/min (>60); Globulin 3.3 g/dL (2.2-4.2); Glucose 124 mg/dL (74-106); Potassium 4.1 mmol/L (3.5-5.1); Sodium Level 139 mmol/L (136-145)
== END | disposition home or self-care (01) ==
LOC: MTLAB 13:50
PROVIDERS: PCP Family Medicine; Referring Provider Internal Medicine Rheumatology; Visit Provider Internal Medicine Rheumatology
DX: M06.00 Rheumatoid arthritis without rheumatoid factor, unspecified site (principal); M79.7 Fibromyalgia; M16.11 Unilateral primary osteoarthritis, right hip; M75.121 Complete rotator cuff tear or rupture of right shoulder, not specified as traumatic; M47.897 Other spondylosis, lumbosacral region; M47.892 Other spondylosis, cervical region; I10 Essential (primary) hypertension; E03.9 Hypothyroidism, unspecified; E78.5 Hyperlipidemia, unspecified; Z79.899 Other long term (current) drug therapy
CPT/HCPCS: 36415; 80053; 85025

== ENCOUNTER → 2023-02-13 | Outpatient (CLI) | payer MEDICARE, BC, SELFPAY ==
[2023-02-13 17:57] LABS: Absolute Lymphocyte Count 2.65 X10^3/uL (0.83-4.51); Absolute Neutrophil Count 3.3 X10^3/uL (2.0-7.7); Basophil# 0.04 X10^3/uL; Basophil% 0.6 % (0-1); Eosinophil# 0.06 X10^3/uL; Eosinophils% 0.9 % (0-5); Hematocrit 42.9 % (37-47); Hemoglobin 13.6 g/dL (12.0-15.0); Lymphocyte # 2.65 X10^3/ul (0.83-4.51); Lymphocyte % 39.5 % (19-41); Mean Corp Hgb Conc 31.7 g/dL (32-36); Mean Corpuscular Hgb 29.8 pg (27.0-32.0); Mean Corpuscular Volume 93.9 fL (81-99); Mean Platelet Vol. 11.3 fl (6.2-12.0); Monocyte# 0.64 X10^3/uL; Monocyte% 9.5 % (0-10); NRBC Flagged by Analyzer 0 % (0-5); Neutrophil % 49.2 % (47-70); Platelet Count 237 K/mm3 (150-450); RBC Distribution Width SD 48.5 fl (35.1-43.9); Red Blood Count 4.57 M/mm3 (4.2-5.4); White Blood Count 6.7 K/mm3 (4.4-11.0)
[2023-02-13 18:10] LABS: ALB/GLOB Ratio 1.2 RATIO (0.9-2.4); AST(SGOT) 22 U/L (15-37); Alanine Aminotransfer ALT/SGPT 28 U/L (13-56); Albumin, Serum 3.7 g/dL (3.2-5.0); Alkaline Phosphatase 80 U/L (45-117); Anion Gap 5 (5-15); BUN 9 mg/dL (7-18); BUN/Creat Ratio 13.4 RATIO (10-20); Calcium,Total 9.2 mg/dL (8.5-10.1); Chloride 105 mmol/L (98-107); Creatinine, Serum 0.67 mg/dL (0.55-1.02); EST Glomerular Filtration Rate 93 mL/min (>60); Est Glom Filt Rate - Afr Amer 113 mL/min (>60); Globulin 3.2 g/dL (2.2-4.2); Glucose 107 mg/dL (74-106); Potassium 3.7 mmol/L (3.5-5.1); Protein, Total 6.9 g/dL (6.4-8.2); Sodium Level 140 mmol/L (136-145)
== END | disposition home or self-care (01) ==
LOC: MTLAB 15:12
PROVIDERS: PCP Family Medicine; Referring Provider Internal Medicine Rheumatology; Visit Provider Internal Medicine Rheumatology
DX: M06.00 Rheumatoid arthritis without rheumatoid factor, unspecified site (principal); Z79.899 Other long term (current) drug therapy
CPT/HCPCS: 36415; 80053; 85025

== ENCOUNTER → 2023-05-05 | Outpatient (CLI) | payer MEDICARE, BC, SELFPAY ==
[2023-05-05 14:44] LABS: Absolute Lymphocyte Count 1.57 X10^3/uL (0.83-4.51); Absolute Neutrophil Count 3.5 X10^3/uL (2.0-7.7); Basophil# 0.04 X10^3/uL; Basophil% 0.7 % (0-1); Eosinophil# 0.07 X10^3/uL; Eosinophils% 1.2 % (0-5); Hematocrit 40.7 % (37-47); Hemoglobin 13.3 g/dL (12.0-15.0); Lymphocyte # 1.57 X10^3/ul (0.83-4.51); Lymphocyte % 26.6 % (19-41); Mean Corp Hgb Conc 32.7 g/dL (32-36); Mean Corpuscular Hgb 29.9 pg (27.0-32.0); Mean Corpuscular Volume 91.5 fL (81-99); Mean Platelet Vol. 10.6 fl (6.2-12.0); Monocyte# 0.67 X10^3/uL; Monocyte% 11.4 % (0-10); NRBC Flagged by Analyzer 0 % (0-5); Neutrophil # 3.54 X10^3/uL (2.7-7.7); Neutrophil % 59.9 % (47-70); Platelet Count 258 K/mm3 (150-450); RBC Distribution Width CV 14.9 % (11.6-14.6); Red Blood Count 4.45 M/mm3 (4.2-5.4); White Blood Count 5.9 K/mm3 (4.4-11.0)
[2023-05-05 15:05] LABS: ALB/GLOB Ratio 1.2 RATIO (0.9-2.4); AST(SGOT) 20 U/L (15-37); Alanine Aminotransfer ALT/SGPT 23 U/L (13-56); Albumin, Serum 3.6 g/dL (3.2-5.0); Alkaline Phosphatase 74 U/L (45-117); Anion Gap 4 (5-15); BUN 8 mg/dL (7-18); BUN/Creat Ratio 13.7 RATIO (10-20); Chloride 108 mmol/L (98-107); Creatinine, Serum 0.58 mg/dL (0.55-1.02); EST Glomerular Filtration Rate 110 mL/min (>60); Est Glom Filt Rate - Afr Amer 133 mL/min (>60); Globulin 3.1 g/dL (2.2-4.2); Glucose 111 mg/dL (74-106); Protein, Total 6.7 g/dL (6.4-8.2); Sodium Level 141 mmol/L (136-145)
== END | disposition home or self-care (01) ==
LOC: MTLAB 13:16
PROVIDERS: PCP Family Medicine; Referring Provider Internal Medicine Rheumatology; Visit Provider Internal Medicine Rheumatology
DX: M06.00 Rheumatoid arthritis without rheumatoid factor, unspecified site (principal); M79.7 Fibromyalgia; M16.11 Unilateral primary osteoarthritis, right hip; M75.121 Complete rotator cuff tear or rupture of right shoulder, not specified as traumatic; M75.122 Complete rotator cuff tear or rupture of left shoulder, not specified as traumatic; M47.897 Other spondylosis, lumbosacral region; M47.892 Other spondylosis, cervical region; I10 Essential (primary) hypertension; E03.9 Hypothyroidism, unspecified; E78.5 Hyperlipidemia, unspecified; Z79.899 Other long term (current) drug therapy
CPT/HCPCS: 36415; 80053; 85025

== ENCOUNTER → 2023-07-27 | Outpatient (CLI) | payer MEDICARE, BC, SELFPAY ==
--- NOTE | 2023-07-27 13:12 | BI_ITS ---
MAMMOGRAPHY - BILATERAL SCREENING REASON FOR EXAM: Female, 63 years old. Routine annual screening examination. PERTINENT HISTORY: Non-contributory. TECHNIQUE: Digital bilateral breast david (3D mammographic acquisition) in the CC and MLO projections. 2-D mediolateral oblique (MLO) and craniocaudad (CC) views of both breasts were obtained. CAD: Full Field Digital Mammography with Computer Added Detection was performed. COMPARISON: Comparison is made with prior study dated July 22, 2022 and July 15, 2021. FINDINGS: Breast Composition: There are scattered areas of fibroglandular density. There are no dominant masses or suspicious calcifications. Stable small benign-appearing bilateral axillary lymph nodes. No other significant abnormalities are identified. There has been no significant change since the prior study. BI/SCRN MAMM (CAD)W/DAVID BILAT IMPRESSION: Stable bilateral screening mammogram. Yearly follow-up mammogram recommended. (A) ASSESSMENT CATEGORY: BIRADS Category 2: Benign. A letter regarding these results will be sent to the patient by the facility within 30 days. Approximately 10% of breast cancers are not detected by mammography. A normal mammogram should not delay biopsy of a clinically suspicious abnormality. [id number] Electronically Signed: Gennaro Pendleton MD at 13:41 EST ,
== END | disposition home or self-care (01) ==
LOC: OPBI 13:11
PROVIDERS: PCP Family Medicine; Referring Provider Nurse Practitioner Women's Health; Visit Provider Nurse Practitioner Women's Health
DX: Z12.31 Encounter for screening mammogram for malignant neoplasm of breast (principal)
CPT/HCPCS: 77063; 77067

== ENCOUNTER → 2023-08-03 | Outpatient (CLI) | payer MEDICARE, BC, SELFPAY ==
[2023-08-03 15:48] LABS: Absolute Lymphocyte Count 1.82 X10^3/uL (0.83-4.51); Absolute Neutrophil Count 3.6 X10^3/uL (2.0-7.7); Basophil# 0.05 X10^3/uL; Basophil% 0.8 % (0-1); Eosinophil# 0.07 X10^3/uL; Eosinophils% 1.1 % (0-5); Hematocrit 44.2 % (37-47); Hemoglobin 13.7 g/dL (12.0-15.0); Lymphocyte # 1.82 X10^3/ul (0.83-4.51); Lymphocyte % 29.1 % (19-41); Mean Corpuscular Hgb 29.3 pg (27.0-32.0); Mean Corpuscular Volume 94.6 fL (81-99); Mean Platelet Vol. 10.6 fl (6.2-12.0); Monocyte# 0.74 X10^3/uL; Monocyte% 11.8 % (0-10); NRBC Flagged by Analyzer 0 % (0-5); Neutrophil # 3.56 X10^3/uL (2.7-7.7); Platelet Count 280 K/mm3 (150-450); RBC Distribution Width CV 14.2 % (11.6-14.6); RBC Distribution Width SD 49.3 fl (35.1-43.9); Red Blood Count 4.67 M/mm3 (4.2-5.4); White Blood Count 6.3 K/mm3 (4.4-11.0)
[2023-08-03 16:49] LABS: ALB/GLOB Ratio 1.1 RATIO (0.9-2.4); AST(SGOT) 27 U/L (15-37); Alanine Aminotransfer ALT/SGPT 31 U/L (13-56); Albumin, Serum 3.8 g/dL (3.2-5.0); Alkaline Phosphatase 77 U/L (45-117); Anion Gap 5 (5-15); BUN 5 mg/dL (7-18); BUN/Creat Ratio 8.3 RATIO (10-20); Chloride 107 mmol/L (98-107); EST Glomerular Filtration Rate 106 mL/min (>60); Est Glom Filt Rate - Afr Amer 128 mL/min (>60); Globulin 3.4 g/dL (2.2-4.2); Glucose 74 mg/dL (74-106); Potassium 4.3 mmol/L (3.5-5.1); Protein, Total 7.2 g/dL (6.4-8.2); Sodium Level 140 mmol/L (136-145)
== END | disposition home or self-care (01) ==
LOC: MTLAB 12:35
PROVIDERS: PCP Family Medicine; Referring Provider Internal Medicine Rheumatology; Visit Provider Internal Medicine Rheumatology
DX: M06.00 Rheumatoid arthritis without rheumatoid factor, unspecified site (principal); M79.7 Fibromyalgia; Z79.899 Other long term (current) drug therapy
CPT/HCPCS: 36415; 80053; 85025

== ENCOUNTER → 2023-10-26 | Outpatient (CLI) | payer MEDICARE, BC, SELFPAY ==
[2023-10-26 15:35] LABS: Absolute Lymphocyte Count 2.05 X10^3/uL (0.83-4.51); Basophil# 0.06 X10^3/uL; Basophil% 0.9 % (0-1); Eosinophil# 0.07 X10^3/uL; Hemoglobin 14.1 g/dL (12.0-15.0); Lymphocyte # 2.05 X10^3/ul (0.83-4.51); Lymphocyte % 29.5 % (19-41); Mean Corpuscular Hgb 29.6 pg (27.0-32.0); Mean Corpuscular Volume 92.4 fL (81-99); Mean Platelet Vol. 10.4 fl (6.2-12.0); Monocyte# 0.72 X10^3/uL; Monocyte% 10.4 % (0-10); NRBC Flagged by Analyzer 0 % (0-5); Neutrophil # 4.02 X10^3/uL (2.7-7.7); Neutrophil % 57.8 % (47-70); Platelet Count 288 K/mm3 (150-450); RBC Distribution Width CV 14.7 % (11.6-14.6); Red Blood Count 4.76 M/mm3 (4.2-5.4)
[2023-10-26 16:21] LABS: ALB/GLOB Ratio 1.3 RATIO (0.9-2.4); AST(SGOT) 23 U/L (15-37); Alanine Aminotransfer ALT/SGPT 32 U/L (13-56); Albumin, Serum 3.9 g/dL (3.2-5.0); Alkaline Phosphatase 69 U/L (45-117); Anion Gap 4 (5-15); BUN 7 mg/dL (7-18); BUN/Creat Ratio 10.6 RATIO (10-20); Calcium,Total 9.3 mg/dL (8.5-10.1); Chloride 106 mmol/L (98-107); Creatinine, Serum 0.66 mg/dL (0.55-1.02); EST Glomerular Filtration Rate 95 mL/min (>60); Est Glom Filt Rate - Afr Amer 115 mL/min (>60); Globulin 3.1 g/dL (2.2-4.2); Glucose 141 mg/dL (74-106); Potassium 3.7 mmol/L (3.5-5.1); Sodium Level 138 mmol/L (136-145)
== END | disposition home or self-care (01) ==
PROVIDERS: PCP Family Medicine; Referring Provider Internal Medicine Rheumatology; Visit Provider Internal Medicine Rheumatology
DX: M06.00 Rheumatoid arthritis without rheumatoid factor, unspecified site (principal); M79.7 Fibromyalgia; M16.11 Unilateral primary osteoarthritis, right hip; M75.121 Complete rotator cuff tear or rupture of right shoulder, not specified as traumatic; M47.897 Other spondylosis, lumbosacral region; M47.892 Other spondylosis, cervical region; I10 Essential (primary) hypertension; E03.9 Hypothyroidism, unspecified; E78.5 Hyperlipidemia, unspecified; Z79.899 Other long term (current) drug therapy
CPT/HCPCS: 36415; 80053; 85025

== ENCOUNTER → 2024-01-28 | Outpatient (CLI) | payer MEDICARE, BC, SELFPAY ==
[2024-01-28 17:32] LABS: Absolute Lymphocyte Count 2.08 X10^3/uL (0.83-4.51); Absolute Neutrophil Count 3.9 X10^3/uL (2.0-7.7); Basophil# 0.06 X10^3/uL; Basophil% 0.9 % (0-1); Eosinophil# 0.08 X10^3/uL; Eosinophils% 1.2 % (0-5); Hematocrit 41.5 % (37-47); Hemoglobin 13.3 g/dL (12.0-15.0); Lymphocyte # 2.08 X10^3/ul (0.83-4.51); Lymphocyte % 30.8 % (19-41); Mean Corpuscular Hgb 29.8 pg (27.0-32.0); Mean Platelet Vol. 10.5 fl (6.2-12.0); Monocyte# 0.68 X10^3/uL; Monocyte% 10.1 % (0-10); NRBC Flagged by Analyzer 0 % (0-5); Neutrophil # 3.85 X10^3/uL (2.7-7.7); Neutrophil % 56.9 % (47-70); Platelet Count 259 K/mm3 (150-450); RBC Distribution Width CV 14.2 % (11.6-14.6); RBC Distribution Width SD 48.2 fl (35.1-43.9); Red Blood Count 4.46 M/mm3 (4.2-5.4); White Blood Count 6.8 K/mm3 (4.4-11.0)
[2024-01-28 18:20] LABS: ALB/GLOB Ratio 1.2 RATIO (0.9-2.4); AST(SGOT) 23 U/L (15-37); Alanine Aminotransfer ALT/SGPT 27 U/L (13-56); Albumin, Serum 3.7 g/dL (3.2-5.0); Alkaline Phosphatase 73 U/L (45-117); Anion Gap 4 (5-15); BUN 7 mg/dL (7-18); BUN/Creat Ratio 11.4 RATIO (10-20); Calcium,Total 9.2 mg/dL (8.5-10.1); Chloride 105 mmol/L (98-107); Creatinine, Serum 0.61 mg/dL (0.55-1.02); EST Glomerular Filtration Rate 104 mL/min (>60); Est Glom Filt Rate - Afr Amer 125 mL/min (>60); Globulin 3.1 g/dL (2.2-4.2); Glucose 82 mg/dL (74-106); Potassium 4.1 mmol/L (3.5-5.1); Protein, Total 6.8 g/dL (6.4-8.2); Sodium Level 138 mmol/L (136-145)
== END | disposition home or self-care (01) ==
LOC: MTLAB 15:38
PROVIDERS: PCP Family Medicine; Referring Provider Internal Medicine Rheumatology; Visit Provider Internal Medicine Rheumatology
DX: M06.00 Rheumatoid arthritis without rheumatoid factor, unspecified site (principal); M79.7 Fibromyalgia; Z79.899 Other long term (current) drug therapy
CPT/HCPCS: 36415; 80053; 85025

== ENCOUNTER → 2024-04-20 | Outpatient (CLI) | payer MEDICARE, BC, SELFPAY ==
[2024-04-20 17:21] LABS: Absolute Lymphocyte Count 1.42 X10^3/uL (0.83-4.51); Absolute Neutrophil Count 3.9 X10^3/uL (2.0-7.7); Basophil# 0.05 X10^3/uL; Basophil% 0.8 % (0-1); Eosinophil# 0.03 X10^3/uL; Eosinophils% 0.5 % (0-5); Hematocrit 41.8 % (37-47); Hemoglobin 13.6 g/dL (12.0-15.0); Lymphocyte # 1.42 X10^3/ul (0.83-4.51); Lymphocyte % 23.5 % (19-41); Mean Corp Hgb Conc 32.5 g/dL (32-36); Mean Corpuscular Hgb 29.4 pg (27.0-32.0); Mean Corpuscular Volume 90.3 fL (81-99); Mean Platelet Vol. 10.3 fl (6.2-12.0); Monocyte# 0.67 X10^3/uL; Monocyte% 11.1 % (0-10); NRBC Flagged by Analyzer 0 % (0-5); Neutrophil # 3.88 X10^3/uL (2.7-7.7); Neutrophil % 64.1 % (47-70); Platelet Count 235 K/mm3 (150-450); RBC Distribution Width CV 14.4 % (11.6-14.6); RBC Distribution Width SD 47.5 fl (35.1-43.9); Red Blood Count 4.63 M/mm3 (4.2-5.4); White Blood Count 6.1 K/mm3 (4.4-11.0)
[2024-04-20 17:34] LABS: ALB/GLOB Ratio 1.3 RATIO (0.9-2.4); AST(SGOT) 23 U/L (15-37); Alanine Aminotransfer ALT/SGPT 27 U/L (13-56); Albumin, Serum 3.8 g/dL (3.2-5.0); Alkaline Phosphatase 66 U/L (45-117); Anion Gap 1 (5-15); BUN 6 mg/dL (7-18); BUN/Creat Ratio 9.8 RATIO (10-20); Calcium,Total 9.1 mg/dL (8.5-10.1); Chloride 107 mmol/L (98-107); Creatinine, Serum 0.61 mg/dL (0.55-1.02); EST Glomerular Filtration Rate 104 mL/min (>60); Est Glom Filt Rate - Afr Amer 126 mL/min (>60); Glucose 94 mg/dL (74-106); Potassium 3.9 mmol/L (3.5-5.1); Protein, Total 6.8 g/dL (6.4-8.2); Sodium Level 138 mmol/L (136-145)
== END | disposition home or self-care (01) ==
LOC: MTLAB 15:26
PROVIDERS: PCP Family Medicine; Referring Provider Internal Medicine Rheumatology; Visit Provider Internal Medicine Rheumatology
DX: M06.00 Rheumatoid arthritis without rheumatoid factor, unspecified site (principal); M79.7 Fibromyalgia; M16.11 Unilateral primary osteoarthritis, right hip; Z79.899 Other long term (current) drug therapy
CPT/HCPCS: 36415; 80053; 85025

== ENCOUNTER → 2024-07-13 | Outpatient (CLI) | payer MEDICARE, BC, SELFPAY ==
[2024-07-13 15:16] LABS: Absolute Lymphocyte Count 1.41 X10^3/uL (0.83-4.51); Absolute Neutrophil Count 4.1 X10^3/uL (2.0-7.7); Basophil# 0.04 X10^3/uL; Basophil% 0.6 % (0-1); Eosinophil# 0.05 X10^3/uL; Eosinophils% 0.8 % (0-5); Hematocrit 42.1 % (37-47); Hemoglobin 13.7 g/dL (12.0-15.0); Lymphocyte # 1.41 X10^3/ul (0.83-4.51); Lymphocyte % 22.1 % (19-41); Mean Corp Hgb Conc 32.5 g/dL (32-36); Mean Corpuscular Hgb 29.8 pg (27.0-32.0); Mean Corpuscular Volume 91.7 fL (81-99); Monocyte# 0.74 X10^3/uL; Monocyte% 11.6 % (0-10); NRBC Flagged by Analyzer 0 % (0-5); Neutrophil # 4.11 X10^3/uL (2.7-7.7); Neutrophil % 64.4 % (47-70); Platelet Count 238 K/mm3 (150-450); RBC Distribution Width SD 50.4 fl (35.1-43.9); Red Blood Count 4.59 M/mm3 (4.2-5.4); White Blood Count 6.4 K/mm3 (4.4-11.0)
[2024-07-13 15:30] LABS: ALB/GLOB Ratio 1.3 RATIO (0.9-2.4); AST(SGOT) 18 U/L (15-37); Alanine Aminotransfer ALT/SGPT 22 U/L (13-56); Albumin, Serum 3.8 g/dL (3.2-5.0); Alkaline Phosphatase 62 U/L (45-117); Anion Gap 3 (5-15); BUN 7 mg/dL (7-18); BUN/Creat Ratio 12.5 RATIO (10-20); Chloride 106 mmol/L (98-107); Creatinine, Serum 0.56 mg/dL (0.55-1.02); EST Glomerular Filtration Rate 115 mL/min (>60); Est Glom Filt Rate - Afr Amer 139 mL/min (>60); Glucose 81 mg/dL (74-106); Potassium 3.8 mmol/L (3.5-5.1); Protein, Total 6.8 g/dL (6.4-8.2); Sodium Level 140 mmol/L (136-145)
== END | disposition home or self-care (01) ==
LOC: MTLAB 13:21
PROVIDERS: PCP Family Medicine; Referring Provider Internal Medicine Rheumatology; Visit Provider Internal Medicine Rheumatology
DX: M06.00 Rheumatoid arthritis without rheumatoid factor, unspecified site (principal); M79.7 Fibromyalgia; Z79.899 Other long term (current) drug therapy
CPT/HCPCS: 36415; 80053; 85025

== ENCOUNTER → 2024-07-20 | Outpatient (CLI) | payer MEDICARE, BC, SELFPAY ==
[2024-07-26 12:10] LABS: QNTFERON TB Mitogen Value > 10.00 IU/mL (.); QNTFERON TB Nil Value 0 IU/mL (.); QNTFERON TB1+ Ag Value 0 IU/mL (.); QNTFERON TB2+ Ag Value 0 IU/mL (.); QNTIFERON TB Positive Criteria Negative (Negative)
== END | disposition home or self-care (01) ==
LOC: MTLAB 15:44
PROVIDERS: PCP Family Medicine; Referring Provider Internal Medicine Rheumatology; Visit Provider Internal Medicine Rheumatology
DX: M06.00 Rheumatoid arthritis without rheumatoid factor, unspecified site (principal); M79.7 Fibromyalgia; Z79.899 Other long term (current) drug therapy
CPT/HCPCS: 36415; 86480

== ENCOUNTER → 2024-08-22 | Outpatient (CLI) | payer MEDICARE, BC, SELFPAY ==
--- NOTE | 2024-08-22 12:04 | BI_ITS ---
MAMMOGRAPHY - BILATERAL SCREENING 3-D TOMOSYNTHESIS REASON FOR EXAM: Female, 64 years old. screening PERTINENT HISTORY: No significant family history. TECHNIQUE: 2-D mammograms and 3-D Tomosynthesis of the breast (s) were performed. CAD was performed. COMPARISON: 07/27/2023 FINDINGS: The breast composition is composed of scattered fibroglandular density. Scattered benign calcifications are seen. No dense spiculated masses or suspicious microcalcifications are identified. No architectural distortion is identified. There is no skin thickening or retraction. There has been no significant change since the prior study. BI/SCRN MAMM (CAD)W/DAVID BILAT IMPRESSION: No mammographic signs of malignancy. Routine yearly mammograms recommended. ASSESSMENT CATEGORY: BIRADS Category 1: Negative. A letter regarding these results will be sent to the patient by the facility within 30 days. FOLLOW UP RECOMMENDATION: Yearly follow up mammogram recommended. (A) Approximately 10% of breast cancers are not detected by mammography. A normal mammogram should not delay biopsy of a clinically suspicious abnormality. Electronically Signed: Krish Sawyer MD at 17:53 EST ,
== END | disposition home or self-care (01) ==
LOC: OPBI 12:04
PROVIDERS: PCP Family Medicine; Referring Provider Nurse Practitioner Women's Health; Visit Provider Nurse Practitioner Women's Health
DX: Z12.31 Encounter for screening mammogram for malignant neoplasm of breast (principal)
CPT/HCPCS: 77063; 77067

== ENCOUNTER 2024-08-31 15:11 | Emergency (ER) | payer MEDICARE, BC, SELFPAY ==
[2024-08-31 15:12] VITALS: BP 131/85; PULSE 101; RESP 16; TEMP 36.4; O2SAT 100; BMI 28.3
[2024-08-31 15:15] VITALS: BP 131/85; PULSE 99; RESP 16; TEMP 36.4; O2SAT 99
--- NOTE | 2024-08-31 15:57 | CT_ITS ---
EXAM: CT ABDOMEN AND PELVIS WITHOUT INTRAVENOUS CONTRAST CLINICAL INDICATION: Kidney Stone TECHNIQUE: Helically acquired images were obtained of the abdomen and pelvis without intravenous contrast. This CT exam was performed using one or more of the following dose reduction techniques: automated exposure control, adjustment of the mA and/or kV according to patient size, and/or use of iterative reconstruction technique. COMPARISON: No relevant prior studies available. FINDINGS: LOWER THORAX: Unremarkable. Lung bases are clear. No cardiomegaly. No significant pericardial effusion. ABDOMEN: LIVER: Unremarkable. Homogeneous. GALLBLADDER AND BILE DUCTS: Unremarkable. No calcified gallstones. No gallbladder distention or wall edema. No intra- or extrahepatic biliary ductal dilation. PANCREAS: Unremarkable. No focal cystic mass. SPLEEN: Unremarkable. Normal size without focal cystic or solid mass. ADRENALS: Unremarkable. No nodules. KIDNEYS AND URETERS: There is an 8 mm stone in the left renal pelvis. There is no hydronephrosis identified. Normal renal size and position. STOMACH AND BOWEL: Unremarkable. No stomach or bowel distention. No focal inflammatory change. PELVIS: APPENDIX: No evidence of acute appendicitis. BLADDER: Unremarkable. REPRODUCTIVE: Unremarkable as visualized. No mass. ABDOMEN and PELVIS: INTRAPERITONEAL SPACE: Unremarkable. No ascites or other fluid collection. No free air. BONES/JOINTS: There is beam Lynn artifact on a right hip prosthesis. No suspicious lytic or blastic abnormality. SOFT TISSUES: Unremarkable. No discrete abdominal or pelvic wall hernia. VASCULATURE: Unremarkable. Abdominal aorta is non-dilated. LYMPH NODES: Unremarkable. No enlarged lymph nodes. CT/Abdomen/Pelvis without Cont IMPRESSION: 8 mm stone in the left renal pelvis. There is no hydronephrosis identified. There are no ureteral stones seen. No other acute abnormalities are identified. Electronically Signed: Robbie Jeter MD at 17:27 EST ,
--- NOTE | 2024-08-31 15:57 | EX.ED.DYSGE1 ---
HPI History of Present Illness Chief Complaint: Complaint Narrative Narrative: 64-year-old female past medical history of rheumatoid arthritis, thyroid problems, does not take blood thinners presents with hematuria that she has had for a week. She states it started out as gross hematuria, and throughout the week there was a time when it got worse, but she has had blood in her urine for the last week with every urination. She went to urgent care today and they did a dipstick urine which was positive for hemoglobin. She was mildly tachycardic at the time so she was sent in by the provider with concern for blood loss. She has had history of kidney stones in the past but does not complain of flank pain, stating that she has pain in the middle of her back at times. No fevers or chills, no exacerbating or alleviating factors. [facility] Medical History Kidney stones Fibromyalgia Osteoarthritis Rheumatoid arthritis Home Medications ?Medication ?Instructions ?Recorded ?Last Taken ?Type amitriptyline 50 mg tablet 50 mg PO QHS 10/21/19 Unknown History cyclobenzaprine 5 mg tablet 5 mg PO TID 10/21/19 Unknown History omeprazole 20 mg tablet,delayed 20 mg PO DAILY 10/21/19 Unknown History release prednisone 5 mg tablet 5 mg PO DAILY 10/21/19 Unknown History tramadol 50 mg tablet 50 mg PO TID PRN Pain Or Fever 10/21/19 Unknown History levothyroxine 25 mcg tablet 50 mcg PO DAILY 07/10/20 Unknown History tofacitinib 11 mg tablet,extended 11 mg PO DAILY 07/10/20 Unknown History release 24 hr acetaminophen 500 mg capsule 500 mg PO Q6H PRN 07/22/22 Unknown History albuterol sulfate 90 mcg/actuation 2 puff inhalation Q6H PRN 07/22/22 Unknown History aerosol inhaler Allergy/AdvReac Type Severity Reaction Status Date / Time gabapentin Allergy Shortness Verified 08/31/24 15:15 of breath codeine AdvReac Upset Verified 08/31/24 15:15 Stomach Family History Grandmother Rheumatoid arthritis Unknown Diabetes Surgical History Status post right hip replacement History of hand surgery History of bilateral carpal tunnel release History of bilateral knee replacement Social History household members: children number of children: 1 current occupational status: unemployed history of recent travel: No sexually active: No Smoking Status: Current every day smoker tobacco type: cigarettes alcohol intake: never substance use type: does not use what type of physical activity do you participate in: none seatbelt use: always do you feel safe at home: Yes additional social history: single ROS ROS ED ROS Narrative Constitutional: No fever, no chills. HEENT: No sore throat. No neck pain. No loss of vision. No rhinorrhea. Cardiovascular: No chest pain. No palpitations. No pedal edema. Respiratory: No cough, no shortness of breath. Abdominal: No abdominal pain. No nausea. No vomiting. Genitourinary: No dysuria. Positive hematuria x 1 week. No flank pain. Musculoskeletal: No myalgias. No arthralgias. Positive midline back pain. Neurologic: No headaches. No dizziness. No lightheadedness. Skin: No rash. No change in color. EXAM Physical Exam Narrative Exam Narrative: Afebrile. Vital signs noted. HEENT: Normocephalic. Atraumatic. PERRL, EOMI. Neck soft and supple. No point tenderness or step off. Cardiovascular: Regular rate and rhythm, initially tachycardic in triage at 101 bpm.. No murmurs, rubs, or gallops appreciated. Respiratory: No tachypnea. Lungs clear to auscultation bilaterally. Gastrointestinal: Abdomen soft, nontender, with normoactive bowel sounds. No rebound or guarding. Neurological: Awake. Alert. Nonfocal, nonlateralizing. Skin: No rash. Normal color. No pallor. Musculoskeletal: No pedal edema. Full range of motion extremities. Const Vital Signs: 08/31/24 15:12 08/31/24 15:15 Temperature 97.6 F L 97.6 F L Temperature Source Temporal Temporal Pulse Rate 101 H 99 Respiratory Rate 16 16 Blood Pressure 131/85 H 131/85 H Blood Pressure Mean 100 100 Pulse Ox 100 99 Oxygen Delivery Method Room Air Room Air MDM MDM MDM Narrative Medical decision making narrative: Differential diagnosis does include but not limited to pyelonephritis versus hemorrhagic cystitis versus ureterolithiasis versus bladder tumor. Patient is no longer tachycardic, she is not hypotensive. CBC and BMP will be obtained to make sure she is not anemic requiring transfusion and to check her kidney function as well. She states that she is on Xeljanz and has her liver function studies checked by her primary care provider every few months. I do feel CT imaging is indicated. She did show me the urine dipstick that was performed at the urgent care which was positive for a large amount of hemoglobin on macro analysis. I do feel that microanalysis is indicated as well. I reviewed her laboratory work and she has normal white count of 6.1, hemoglobin 13.9, hematocrit 42.2, platelet count 258. Her BMP is remarkable for normal BUN/low at 4 with creatinine at 0.62. Her urinalysis on microanalysis is positive for 50-100 RBCs. While there are 0-5 WBCs, I do not feel antibiotics are indicated but her urine will be sent for culture. Of significance on review of the CT of the abdomen and pelvis radiology report, she has an 8 mm renal pelvis stone but there is no evidence of hydronephrosis. No ureteral stones. No other abnormality. At this point in time, I feel she can be discharged to follow-up with urology. She was referred to Dr. Kimberly Vera. While she has no evidence of an obstructing stone I do not feel narcotic pain medications are indicated. She will continue [id number] medications. Return instructions to the emergency department were reviewed. Disposition is discharged home in stable condition. History & Record Review Discussion w/independent historian: Patient Lab Data Attestation: I reviewed the patient's lab results. Labs: Laboratory Results - last 24 hr 08/31/24 08/31/24 15:53 16:45 WBC 6.1 RBC 4.61 Hgb 13.9 Hct 42.2 MCV 91.5 MCH 30.2 MCHC 32.9 RDW Std Deviation 49.9 H RDW Coeff of Darrell 14.9 H Plt Count 258 MPV 9.8 Immature Gran % (Auto) 0.300 Neut % (Auto) 65.4 Lymph % (Auto) 22.5 Graves % (Auto) 11.0 H Eos % (Auto) 0.3 Baso % (Auto) 0.5 Absolute Neuts (auto) 4.0 Absolute Lymphs (auto) 1.37 Nucleated RBC % 0 Sodium 139 Potassium 3.9 Chloride 104 Carbon Dioxide 31.0 Anion Gap 4 L BUN 4 L Creatinine 0.62 Estim Creat Clear Calc 58.54 Est GFR (MDRD) Af Amer 123 Est GFR (MDRD) Non-Af 102 BUN/Creatinine Ratio 6.4 L Glucose 99 Calcium 9.6 B-Natriuretic Peptide 10.9 Urine Color SEE COMMENT BELOW Urine Clarity Sl. Cloudy Urine pH 7.0 Ur Specific [place] 1.010 Urine Protein 100 H Urine Glucose (UA) Normal Urine Ketones Negative Urine Occult Blood 250 H Urine Nitrite Negative Urine Bilirubin Negative Urine Urobilinogen Normal Ur Leukocyte Esterase 25 H Urine RBC 50-100 SEEN Urine WBC 0-5 SEEN Ur Squamous Epith Cells 0 SEEN Urine Bacteria 1+ Urine Mucus 0 SEEN Radiography Diagnostic Testing: Clinical Impression(s) from Imaging Studies Abdomen/Pelvis CT 08/31/24 15:57 IMPRESSION: 8 mm stone in the left renal pelvis. There is no hydronephrosis identified. There are no ureteral stones seen. No other acute abnormalities are identified. Electronically Signed: Robbie Jeter MD at 17:27 EST , Discharge Plan Triage Chief Complaint: Complaint ED Provider: Moises Qureshi Dx/Rx/DC Orders Clinical Impression: Hematuria, Calculus of renal pelvis Instructions: ED Hematuria, ED Kidney Stone with Pain Prescriptions: No Action acetaminophen 500 mg capsule 500 mg PO Q6H PRN albuterol sulfate 90 mcg/actuation HFA aerosol inhaler 2 puff inhalation Q6H PRN prednisone 5 MG tablet 5 mg PO DAILY tramadol 50 MG tablet 50 mg PO TID PRN (Reason: Pain Or Fever) amitriptyline 50 MG tablet 50 mg PO QHS cyclobenzaprine 5 MG tablet 5 mg PO TID omeprazole 20 MG tablet,delayed release (DR/EC) 20 mg PO DAILY levothyroxine 25 mcg tablet 50 mcg PO DAILY tofacitinib 11 mg tablet extended release 24 hr 11 mg PO DAILY Primary Care Provider: Roberto Chavez Referrals: Kimberly Vera MD [Med Staff - Active Staff] - As soon as possible Roberto Chavez MD [Primary Care Provider] - Activity Restrictions/Additional Instructions: Follow-up with Dr. Vera as soon as possible. Return with fever, increased pain, new or worsening symptoms. Print Language: [place] Disposition Disposition: Home, Self Care
[2024-08-31 16:08] LABS: Absolute Lymphocyte Count 1.37 X10^3/uL (0.83-4.51); Basophil# 0.03 X10^3/uL; Basophil% 0.5 % (0-1); Eosinophil# 0.02 X10^3/uL; Eosinophils% 0.3 % (0-5); Hematocrit 42.2 % (37-47); Hemoglobin 13.9 g/dL (12.0-15.0); Lymphocyte # 1.37 X10^3/ul (0.83-4.51); Lymphocyte % 22.5 % (19-41); Mean Corp Hgb Conc 32.9 g/dL (32-36); Mean Corpuscular Hgb 30.2 pg (27.0-32.0); Mean Corpuscular Volume 91.5 fL (81-99); Mean Platelet Vol. 9.8 fl (6.2-12.0); Monocyte# 0.67 X10^3/uL; NRBC Flagged by Analyzer 0 % (0-5); Neutrophil # 3.98 X10^3/uL (2.7-7.7); Neutrophil % 65.4 % (47-70); Platelet Count 258 K/mm3 (150-450); RBC Distribution Width CV 14.9 % (11.6-14.6); RBC Distribution Width SD 49.9 fl (35.1-43.9); Red Blood Count 4.61 M/mm3 (4.2-5.4); White Blood Count 6.1 K/mm3 (4.4-11.0)
[2024-08-31 16:29] LABS: BNP,B-Type NATRIURETIC PEPTIDE 10.9 pg/mL (0-100)
[2024-08-31 16:35] LABS: Anion Gap 4 (5-15); BUN 4 mg/dL (7-18); BUN/Creat Ratio 6.4 RATIO (10-20); Calcium,Total 9.6 mg/dL (8.5-10.1); Chloride 104 mmol/L (98-107); Creatinine, Serum 0.62 mg/dL (0.55-1.02); EST Glomerular Filtration Rate 102 mL/min (>60); Est Glom Filt Rate - Afr Amer 123 mL/min (>60); Estimated Creatinine Clearance 58.54 ml/min; Glucose 99 mg/dL (74-106); Potassium 3.9 mmol/L (3.5-5.1); Sodium Level 139 mmol/L (136-145)
[2024-08-31 16:50] LABS: Mucous, Urine 0 SEEN /hpf (<or=2+); Squamous Epithelial Cells - UA 0 SEEN /hpf (5-10)
[2024-08-31 16:53] LABS: Glucose, Dipstick Normal (Normal); Ketone-Dipstick Negative (Negative); Leukocyte Esterase-Dipstick 25 /ul (Negative); Nitrite-Dipstick Negative (Negative); Occult Blood-Urine 250 /ul (Negative); Protein-Dipstick 100 mg/dl (Negative); Urine Bilirubin Dipstick Negative (Negative); Urine Clarity Sl. Cloudy (Clear); Urine Urobilinogen Normal (Normal)
[2024-08-31 16:54] LABS: Color, Urine SEE COMMENT BELOW (Yellow)
[2024-08-31 17:05] LABS: Bacteria 1+ /hpf (None Seen); Red Blood Cells-Urine 50-100 SEEN /hpf (0-5); White Blood Cells 0-5 SEEN /hpf (0-5)
== END 2024-08-31 18:01 | disposition home or self-care (01) ==
PROVIDERS: Emergency Provider Emergency Medicine; PCP Family Medicine; Visit Provider Emergency Medicine
DX: N20.0 Calculus of kidney (principal); M06.9 Rheumatoid arthritis, unspecified; R31.9 Hematuria, unspecified; R00.0 Tachycardia, unspecified; F17.210 Nicotine dependence, cigarettes, uncomplicated; Z79.52 Long term (current) use of systemic steroids; Z79.890 Hormone replacement therapy; Z79.899 Other long term (current) drug therapy
CPT/HCPCS: 74176; 80048; 81001; 83880; 85025; 87086; 99283; A4216

== ENCOUNTER → 2024-09-06 | Outpatient (CLI) | payer MEDICARE, BC, SELFPAY ==
--- NOTE | 2024-09-06 15:54 | RAD_ITS ---
STUDY: X-RAY - ABDOMEN/PELVIS REASON FOR EXAM: Female, 64 years old. Flank pain TECHNIQUE: Two AP supine views of the abdomen and pelvis. COMPARISON: CT from 08/31/2024 FINDINGS: Normal visualized lung bases. There is an unremarkable bowel gas pattern. There is no demonstrated free abdominal air. The visualized liver, spleen and kidneys are grossly normal in size and morphology. There is a 9 mm calcification projecting over the medial aspect of the left renal shadow. On the CT, this was noted to be in the left renal pelvis Normal soft tissue structures. There are diffuse degenerative changes of the visualized lumbar spine. Replaced right hip joint demonstrates anatomic alignment RAD/Abdomen Single View IMPRESSION: Stable left nephrolithiasis Electronically Signed: Adolfo Diallo MD at 23:33 EST ,
== END | disposition home or self-care (01) ==
LOC: MTRAD 15:53
PROVIDERS: PCP Family Medicine; Referring Provider Urology; Visit Provider Urology
DX: N20.0 Calculus of kidney (principal)
CPT/HCPCS: 74018

== ENCOUNTER → 2024-09-29 | Outpatient (CLI) | payer MEDICARE, BC, SELFPAY ==
[2024-09-29 15:29] LABS: Absolute Neutrophil Count 3.6 X10^3/uL (2.0-7.7); Basophil# 0.05 X10^3/uL; Basophil% 0.9 % (0-1); Eosinophil# 0.03 X10^3/uL; Eosinophils% 0.5 % (0-5); Hematocrit 40.6 % (37-47); Hemoglobin 13.4 g/dL (12.0-15.0); Lymphocyte % 26.1 % (19-41); Mean Corpuscular Hgb 30.5 pg (27.0-32.0); Mean Corpuscular Volume 92.3 fL (81-99); Mean Platelet Vol. 10.7 fl (6.2-12.0); Monocyte# 0.54 X10^3/uL; Monocyte% 9.4 % (0-10); NRBC Flagged by Analyzer 0 % (0-5); Neutrophil # 3.62 X10^3/uL (2.7-7.7); Neutrophil % 62.9 % (47-70); Platelet Count 248 K/mm3 (150-450); RBC Distribution Width CV 14.2 % (11.6-14.6); RBC Distribution Width SD 48.2 fl (35.1-43.9); White Blood Count 5.8 K/mm3 (4.4-11.0)
[2024-09-29 15:48] LABS: ALB/GLOB Ratio 1.3 RATIO (0.9-2.4); AST(SGOT) 23 U/L (15-37); Alanine Aminotransfer ALT/SGPT 28 U/L (13-56); Albumin, Serum 3.8 g/dL (3.2-5.0); Alkaline Phosphatase 69 U/L (45-117); Anion Gap 6 (5-15); BUN 6 mg/dL (7-18); Calcium,Total 9.7 mg/dL (8.5-10.1); Chloride 104 mmol/L (98-107); EST Glomerular Filtration Rate 106 mL/min (>60); Est Glom Filt Rate - Afr Amer 129 mL/min (>60); Globulin 2.9 g/dL (2.2-4.2); Glucose 85 mg/dL (74-106); Potassium 4.2 mmol/L (3.5-5.1); Protein, Total 6.7 g/dL (6.4-8.2); Sodium Level 138 mmol/L (136-145)
== END | disposition home or self-care (01) ==
LOC: MTLAB 13:35
PROVIDERS: PCP Family Medicine; Referring Provider Internal Medicine Rheumatology; Visit Provider Internal Medicine Rheumatology
DX: M06.00 Rheumatoid arthritis without rheumatoid factor, unspecified site (principal); M79.7 Fibromyalgia; Z79.899 Other long term (current) drug therapy
CPT/HCPCS: 36415; 80053; 85025

== ENCOUNTER 2024-10-06 08:58 | Day surgery (SDC) | payer MEDICARE, BC, SELFPAY ==
--- NOTE | 2024-09-22 18:27 | PAT.ANE_ITS ---
Pre-Assessment Diagnosis/Proposed Procedure Planned Operative Procedure(s): (L) Cysto, Left renal ESWL Anesthesia History Anesthesia History - director telecommunications: Anesthesia History - director telecommunications Hx Hospitalization No 09/22/24 11:07 Any Problems With Anesthesia Yes: BREATHING WHEN WAKING 09/22/24 11:07 UP, BUT SINCE STARTED AERO TX PREOP NO PROBLEMS Cholinesterase deficiency No 09/22/24 11:07 You/Your Family Experience No 09/22/24 11:07 fever (hyperthermia) with Relationship Recent Exposure to Contagious Disease Does patient have nerve No 09/22/24 11:07 stimulator Patient instructed to have device shut off --Does patient have Pacemaker or ICD? When Was Last Pacemaker Check QUESTION #4 FULL TEXT: You/Your Family Experience fever (hyperthermia) with Anesthesia Last Oral Intake Last Oral intake: Last Oral Intake NPO since Meds taken in AM with sips of water? Meds patient instructed to take am of surgery PONV PONV - director telecommunications: PONV - director telecommunications Female Yes 09/22/24 11:07 HX of Motion Sickness No 09/22/24 11:07 HX of N/V After Surgery Yes 09/22/24 11:07 Non-Smoker No 09/22/24 11:07 Duration of Surgery greater No 09/22/24 11:07 than 60 minutes Number of Risk Factors 2 09/22/24 11:07 PONV Score Moderate Risk 09/22/24 11:07 Height & Weight Height & Weight: Anesthesia: Height & Weight Height 5 ft 08/31/24 15:12 Respiratory Assessment Respiratory Assessment - director telecommunications: Respiratory Tract Infection Hx - director telecommunications Hx Respiratory Tract Infection No 09/22/24 11:07 STOP Sleep Apnea STOP Sleep Apnea - director telecommunications: STOP Sleep Apnea - director telecommunications Hx Hypertension No 09/22/24 11:07 Hx Sleep Apnea Yes 09/22/24 11:07 CPAP Yes 09/22/24 11:07 BIPAP No 09/22/24 11:07 Do you snore loudly (louder than talking or can be heard Do you often feel tired/ fatigued/ sleepy during daytime? Has anyone observed you stop breathing during sleep? STOP Results Positive 09/22/24 11:07 QUESTION #5 FULL TEXT : Do you snore loudly (louder than talking or can be heard through closed doors)? 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 Specify any problems Hx of Preganancy in last 3 No 09/22/24 11:07 Months Nurse Filling Out Transfusion [facility] 09/22/24 11:07 & Questions: Date: 09/22/24 09/22/24 11:07 Time: 11:20 09/22/24 11:07 Patient unable to answer at this time (ie. confused, unrespo /Reproduction History /Reproductive History - director telecommunications: /Reproductive Hx- director telecommunications Hx Now Gestational Age (in weeks): EDC: Hx Hx Para Hx Section SAB No 07/27/23 13:38 [facility] Medical History (Updated 09/22/24 @ 11:17 by Yael Fisher) Wears glasses Cancer Ambulates with cane High cholesterol Restless legs Syncope Difficulty swallowing Heartburn Smoker CPAP (continuous positive airway pressure) dependence Sleep apnea History of stress test History of echocardiogram Kidney stones Fibromyalgia Osteoarthritis Rheumatoid arthritis Home Medications ?Medication ?Instructions ?Recorded ?Last Taken ?Type amitriptyline 50 mg tablet 50 mg PO QHS 10/21/19 Unknown History cyclobenzaprine 5 mg tablet 5 mg PO TID PRN muscle spasm 10/21/19 Unknown History omeprazole 20 mg tablet,delayed 20 mg PO DAILY PRN heartburn 10/21/19 Unknown History release prednisone 5 mg tablet 5 mg PO DAILY PRN RA 10/21/19 Unknown History tramadol 50 mg tablet 50 mg PO TID PRN Pain Or Fever 10/21/19 Unknown History levothyroxine 25 mcg tablet 50 mcg PO DAILY 07/10/20 Unknown History tofacitinib 11 mg tablet,extended 11 mg PO DAILY 07/10/20 Unknown History release 24 hr albuterol sulfate 90 mcg/actuation 2 puff inhalation Q6H PRN 07/22/22 Unknown History aerosol inhaler bronchospasm atorvastatin 40 mg tablet 40 mg PO DAILY cholesterol 09/22/24 Unknown History cholecalciferol (vitamin D3) 50 50 mcg PO DAILY 09/22/24 Unknown History mcg (2,000 unit) capsule (Vitamin D3) diphenhydramine 25 2 tab PO QHS 09/22/24 Unknown History mg-acetaminophen 500 mg tablet (Acetadryl) etodolac 400 mg tablet 400 mg PO BID PRN pain 09/22/24 Unknown History semaglutide (weight loss) 0.25 0.25 mg subcut QWEEK 09/22/24 Unknown History mg/0.5 mL subcutaneous pen injector (Wegovy) Allergy/AdvReac Type Severity Reaction Status Date / Time gabapentin Allergy Shortness Verified 09/22/24 11:30 of breath codeine AdvReac Upset Verified 09/22/24 11:30 Stomach Family History Grandmother Rheumatoid arthritis Unknown Diabetes Surgical History (Updated 09/22/24 @ 11:17 by Yael Fisher) Status post right hip replacement History of hand surgery History of bilateral carpal tunnel release History of bilateral knee replacement Social History household members: children number of children: 1 current occupational status: unemployed history of recent travel: No sexually active: No Smoking Status: Current every day smoker tobacco type: cigarettes alcohol intake: never substance use type: does not use what type of physical activity do you participate in: none seatbelt use: always do you feel safe at home: Yes additional social history: single Recommendation Anesthesia Recommendation Anesthesia recommendation: OPTIMIZED for anesthesia (Check breathing prior to surgery. Nebulizer treatment as needed. Twelve-lead EKG if any chest pain or shortness of breath.)
[2024-10-06] VITALS (11 sets, daily range): BP systolic 110–131; BP diastolic 61–86; PULSE 85–103; RESP 16–18; TEMP 36.1–36.7; O2SAT 95–98; BMI 27.3
[2024-10-06] MEDS: 0.9% Normal Saline (1000mL) 1,000 ML 15 ML IV ×2 (09:24→12:22)
--- NOTE | 2024-10-06 09:34 | PRE.ANES_ITS ---
ASA Classification* ASA Classification ASA Classification: 3 Assessment & Plan Anesthesia* Anesthesia Assessment Anesthesia Assessment: Discussed sedation and/or anesthesia options, risks, benefits, and alternatives with patient/parents/legal guardian/POA. Questions invited. The patient/parents/legal guardian/POA seems to understand and agrees to proceed with anesthesia plan. Reviewed the physical assessment, medical history, allergy history and patient home medications list prior to surgery/procedure/anesthetic and documented any changes. Performed airway and anesthesia risk assessments. Anesthesia Type Anesthesia Type: General History Source History Obtained from:: Patient and Chart Anesthesia Focused Assessment* Temperature: 97 F Pulse Rate: 103 Blood Pressure: 116/72 Respiratory Rate: 16 Pulse Ox: 98 Oxygen Delivery Method: Room Air Airway Assessment Mouth opens: >3 cm Mallampati Score: III Teeth Condition: Caps/Crowns (Patient has several crowns. They are all tight.) Neck Range of motion (ROM): Limited ROM (Patient unable to extend her neck secondary to vertigo.) Focused Labs Anesthesia Preop lab: CBC WBC 5.8 K/mm3 (4.4-11.0) 09/29/24 13:37 09/29/24 RBC 4.40 M/mm3 (4.2-5.4) 09/29/24 13:37 09/29/24 Hgb 13.4 g/dL (12.0-15.0) 09/29/24 13:37 09/29/24 Hct 40.6 % (37-47) 09/29/24 13:37 09/29/24 Plt Count 248 K/mm3 (150-450) 09/29/24 13:37 09/29/24 CHEMISTRY Potassium 4.2 mmol/L (3.5-5.1) 09/29/24 13:37 09/29/24 Sodium 138 mmol/L (136-145) 09/29/24 13:37 09/29/24 BUN 6 mg/dL (7-18) L 09/29/24 13:37 09/29/24 Creatinine 0.60 mg/dL (0.55-1.02) 09/29/24 13:37 09/29/24 Glucose 85 mg/dL (74-106) 09/29/24 13:37 09/29/24 COAG Pre-Assessment Diagnosis/Proposed Procedure Planned Operative Procedure(s): (L) Cysto, Left renal ESWL Anesthesia History Anesthesia History - content specialist: Anesthesia History - content specialist Hx Hospitalization No 09/22/24 11:07 Any Problems With Anesthesia Yes: BREATHING WHEN WAKING 09/22/24 11:07 UP, BUT SINCE STARTED AERO TX PREOP NO PROBLEMS Cholinesterase deficiency No 09/22/24 11:07 You/Your Family Experience No 09/22/24 11:07 fever (hyperthermia) with Relationship Recent Exposure to Contagious No 10/06/24 09:15 Disease Does patient have nerve No 09/22/24 11:07 stimulator Patient instructed to have device shut off --Does patient have Pacemaker No 10/06/24 09:15 or ICD? When Was Last Pacemaker Check QUESTION #4 FULL TEXT: You/Your Family Experience fever (hyperthermia) with Anesthesia Last Oral Intake Last Oral intake: Last Oral Intake NPO since 00:00 10/06/24 09:15 Meds taken in AM with sips of water? Meds patient instructed to take am of surgery PONV PONV - content specialist: PONV - content specialist Female Yes 09/22/24 11:07 HX of Motion Sickness No 09/22/24 11:07 HX of N/V After Surgery Yes 09/22/24 11:07 Non-Smoker No 09/22/24 11:07 Duration of Surgery greater No 09/22/24 11:07 than 60 minutes Number of Risk Factors 2 09/22/24 11:07 PONV Score Moderate Risk 09/22/24 11:07 Height & Weight Height & Weight: Anesthesia: Height & Weight Height 5 ft 10/06/24 09:15 Weight: 63.503 kg 10/06/24 09:15 Body Mass Index (BMI) 27.3 10/06/24 09:15 Respiratory Assessment Respiratory Assessment - content specialist: Respiratory Tract Infection Hx - content specialist Hx Respiratory Tract Infection No 09/22/24 11:07 STOP Sleep Apnea STOP Sleep Apnea - content specialist: STOP Sleep Apnea - content specialist Hx Hypertension No 09/22/24 11:07 Hx Sleep Apnea Yes 09/22/24 11:07 CPAP Yes 09/22/24 11:07 BIPAP No 09/22/24 11:07 Do you snore loudly (louder than talking or can be heard Do you often feel tired/ fatigued/ sleepy during daytime? Has anyone observed you stop breathing during sleep? STOP Results Positive 09/22/24 11:07 QUESTION #5 FULL TEXT : Do you snore loudly (louder than talking or can be heard through closed doors)? 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 Specify any problems Hx of Preganancy in last 3 No 09/22/24 11:07 Months Nurse Filling Out Transfusion [facility] 09/22/24 11:07 & Questions: Date: 09/22/24 09/22/24 11:07 Time: 11:20 09/22/24 11:07 Patient unable to answer at this time (ie. confused, unrespo /Reproduction History /Reproductive History - content specialist: /Reproductive Hx- content specialist Hx Now Gestational Age (in weeks): EDC: Hx Hx Para Hx Section SAB No 07/27/23 13:38 Active Medications Active Medications: Current Medications Generic Name Dose Route Start Last Admin Trade Name Freq PRN Reason Stop Dose Admin Cefazolin Sodium 2 gm/ N/A 20 mls @ 400 mls/hr 10/06/24 10:35 IV 10/06/24 10:37 PREOP ONE Sodium Chloride 1,000 mls @ 15 mls/hr 10/06/24 09:10 10/06/24 09:24 IV 10/11/24 22:29 15 mls/hr .Q48H PAM Administration Protocol PFS Medical History Wears glasses Cancer Ambulates with cane High cholesterol Restless legs Syncope Difficulty swallowing Heartburn Smoker CPAP (continuous positive airway pressure) dependence Sleep apnea History of stress test History of echocardiogram Kidney stones Fibromyalgia Osteoarthritis Rheumatoid arthritis Home Medications ?Medication ?Instructions ?Recorded ?Last Taken ?Type amitriptyline 50 mg tablet 50 mg PO QHS 10/21/1910/05 History cyclobenzaprine 5 mg tablet 5 mg PO TID PRN muscle spa sm 10/21/19 Unknown History omeprazole 20 mg tablet,delayed 20 mg PO DAILY PRN hea rtburn 10/21/19 10/05/24 History release prednisone 5 mg tablet 5 mg PO DAILY PRN RA 0 Unknown History tramadol 50 mg tablet 50 mg PO TID PRN Pain Or Fev er 10/21/19 Unknown History levothyroxine 25 mcg tablet 50 mcg PO DAILY 07/10/20 0 10/05/24 History tofacitinib 11 mg tablet,extended 11 mg PO DAILY 07/1009/29/24 History release 24 hr albuterol sulfate 90 mcg/actuation 2 puff inhalation Q 6H PRN 07/22/22 Unknown History aerosol inhaler bronchospasm atorvastatin 40 mg tablet 40 mg PO DAILY cholesterol 0 09/22/24 Unknown History cholecalciferol (vitamin D3) 50 50 mcg PO DAILY Unknown History mcg (2,000 unit) capsule (Vitamin D3) diphenhydramine 25 2 tab PO QHS 09/22/24 Unknow n History mg-acetaminophen 500 mg tablet (Acetadryl) etodolac 400 mg tablet 400 mg PO BID PRN pain 09/22 Unknown History semaglutide (weight loss) 0.25 0.25 mg subcut QWEEK 09/26/24 History mg/0.5 mL subcutaneous pen injector (Wegovy) Allergy/AdvReac Type Severity Reaction Status Date / Time gabapentin Allergy Shortness Verified 10/06/24 09:14 of breath codeine AdvReac Upset Verified 10/06/24 09:14 Stomach Family History Grandmother Rheumatoid arthritis Unknown Diabetes Surgical History Status post right hip replacement History of hand surgery History of bilateral carpal tunnel release History of bilateral knee replacement Social History household members: children number of children: 1 current occupational status: unemployed history of recent travel: No sexually active: No Smoking Status: Current every day smoker tobacco type: cigarettes alcohol intake: never substance use type: does not use what type of physical activity do you participate in: none seatbelt use: always do you feel safe at home: Yes additional social history: single Review of Systems (Anesthesia) ROS Narrative System reviewed and no additional complaints, except as documented.
[2024-10-06] MEDS: Ipratropium/Albuterol Sulfate 3 ML AMPUL.NEB INHALATION (10:01)
[2024-10-06] MEDS: Cefazolin 2 GM in Syringe IV (10:35)
--- NOTE | 2024-10-06 10:55 | DCINST_ITS ---
Discharge Instructions Diet Discharge Diet: No restrictions Activity Discharge Activity: Return to Normal Activity Dressing / Incision Call your doctor if you observe: Fever of 101 or Higher, Inability to urinate and Inability to have a bowel movement Follow Up Care Please Follow Up With: Kimberly Vera MD When: 2-3 weeks in the office with KUB Test Results: Test results from this visit will be discussed in further detail at your follow- up appointment, if applicable. Discharge Plan Admission Attending Provider: Kimberly Vera Primary Care Provider: Roberto Chavez Instructions Print Language: Kiswahili Discharge Orders/Prescriptions Prescriptions: New oxycodone-acetaminophen 5-325 mg tablet 1 tab PO Q8H PRN (Reason: pain) 3 Days Qty: 10 0RF cephalexin 500 mg capsule 500 mg PO Q12 3 Days Qty: 6 0RF ondansetron 4 mg tablet,disintegrating 4 mg PO Q8H PRN (Reason: nausea and vomiting) Qty: 10 0RF phenazopyridine 200 mg tablet 200 mg PO TID PRN (Reason: pain) Qty: 30 3RF Continued albuterol sulfate 90 mcg/actuation HFA aerosol inhaler 2 puff inhalation Q6H PRN (Reason: bronchospasm) prednisone 5 MG tablet 5 mg PO DAILY PRN (Reason: RA) tramadol 50 MG tablet 50 mg PO TID PRN (Reason: Pain Or Fever) amitriptyline 50 MG tablet 50 mg PO QHS cyclobenzaprine 5 MG tablet 5 mg PO TID PRN (Reason: muscle spasm) omeprazole 20 MG tablet,delayed release (DR/EC) 20 mg PO DAILY PRN (Reason: heartburn) levothyroxine 25 mcg tablet 50 mcg PO DAILY tofacitinib 11 mg tablet extended release 24 hr 11 mg PO DAILY Patient Comments: WILL STOP TAKING 09/29/24 diphenhydramine-acetaminophen [Acetadryl] 25-500 mg tablet 2 tab PO QHS atorvastatin 40 mg tablet 40 mg PO DAILY Wegovy 0.25 mg/0.5 mL pen injector 0.25 mg subcut QWEEK Patient Comments: WILL STOP TAKING ON 09/26/24 etodolac 400 mg tablet 400 mg PO BID PRN (Reason: pain) cholecalciferol (vitamin D3) [Vitamin D3] 50 mcg (2,000 unit) capsule 50 mcg PO DAILY Referrals / Follow Up: Roberto Chavez MD [Primary Care Provider] - Disposition Disposition (needs filled in before D/C Order can be placed): Home, Self Care
--- NOTE | 2024-10-06 10:59 | PCM.OPRPT ---
Operative Report (Standard) Operative Information Date of Procedure: 10/06/24 Pre-Operative Diagnosis: left kidney stone, gross hematuria Post-Operative Diagnosis: same Surgery/Procedure Performed: Left ureteral stent insertion, left renal extracorporal shockwave lithotripsy marine electrician: Yes Service Advocate Contact: [place] Tasks completed by merchandising assistant: Other (stent placement) Additional legal assistant?: No Type of Anesthesia: General and MAC RN Documented Start/Stop Times: Operation Date: 10/06/24 10:30 Case Time Into Pre-Op 10/06/24 09:04 Out of Pre-Op 10/06/24 10:28 Anesthesia Start 10/06/24 10:30 Into Room 10/06/24 10:30 Procedure Start 10/06/24 10:44 Procedure End 10/06/24 11:38 Anesthesia End 10/06/24 11:45 Out of Room 10/06/24 11:45 Into Recovery 10/06/24 11:50 Out of Recovery 10/06/24 12:46 Into Phase II Recovery 10/06/24 12:48 Procedure Start Time: 10:44 Procedure Stop Time: 11:38 Select all DRAINS/GRAFTS/IMPLANTS that apply: Drains Drain details: 6 Singaporean by 22 cm JJ stent Estimated Blood Loss: <5cc Specimen collected: No Description of surgery: The patient is a 64-year-old female with a large left renal stone who presents for intervention and cystoscopy to complete evaluation for hematuria. Informed consent was obtained. She was taken to the operating room and placed on the operating room table. Anesthesia monitored the head, neck, airway, IV access and vital signs throughout the case. Once anesthesia was appropriately administered she was placed into dorsolithotomy position prepped and draped in usual sterile fashion. The cystoscope was inserted through the urethra under direct visualization into the urinary bladder. Bladder mucosa was visualized in its entirety finding no evidence of mass, erythema, ulceration or foreign body. At this time she was repositioned for the lithotripsy as her stone was felt to be 8 mm in size as measured on her CT scan. When the stone was visualized it was felt to be significantly larger than this. 3000 shocks were applied to the stone which appeared to be well fragmented at the end. She was then repositioned into dorsolithotomy and was prepped and draped in usual sterile fashion. The cystoscope was inserted through the urethra under direct visualization into the urinary bladder. The left ureteral orifice was identified and cannulated gently with a 0.035 Glidewire. A 6 Singaporean by 20 cm JJ stent was placed over the wire with good positioning in the bladder, but it was too short to coil appropriately in the renal pelvis. This stent was removed and replaced with a 6 Singaporean 22 cm JJ stent using the same method. Her bladder was emptied and the cystoscope was removed. She was then awakened and taken to the recovery room in good condition. There were no complications during the procedure. Surgical Findings: The stone was much larger than initially anticipated and the decision was made to place a ureteral stent at the time of intervention. Complications Complications: No Admit VTE Documentation VTE Present on Admission: Yes VTE Mechan Device Prophylaxis: SCD's VTE Pharm Prophylaxis ordered?: No Reason prophylaxis not ordered: Treatment Not Indicated
--- NOTE | 2024-10-06 11:48 | PCM.POST.ANE ---
Anesthesia: Postop Eval I Current Vital Signs Temperature: 97.2 F Pulse Rate: 100 Blood Pressure: 110/72 Respiratory Rate: 18 Pulse Ox: 95 Assessment Airway patent: Yes Spontaneous unlabored respirations: Yes nausea: No Vomiting: No Anesthesia Complication: No Fluid Hydration Crystalloid volume administer (ml): 900 Total IV fluid infused: 900 Progress Note Anesthesia document: Postop Eval 1 completed: Yes
--- NOTE | 2024-10-06 13:16 | POSTOPAN2_ITS ---
Anesthesia Postop Eval I Sum Postop Eval Completion status Anesthesia document: Postop Eval 1 completed: Yes Anesthesia Postop Eval I Summary Anesthesia Postop Eval I Summary: Anesthesia Postop Eval I: Assessment Summary Airway patent Yes 10/06/24 11:48 SITE [email or web address] Spontaneous unlabored Yes 10/06/24 11:48 SITE COORDINATOR.CSIR respirations Mental status nausea No 10/06/24 11:48 SITE COORDINATOR.CSIR Vomiting No 10/06/24 11:48 SITE COORDINATOR.[email or web address] Anesthesia Postop Eval I: Fluid Summary Crystalloid volume administer 900 10/06/24 11:48 SITE COORDINATOR.CSIR (ml) Colloids volume administered ( ml) Blood Product volume administered (ml) Total IV fluid infused 900 10/06/24 11:48 SITE COORDINATOR.CSIR Anesthesia Postop Eval I: Summary Notes Anesthesia Complication No 10/06/24 11:48 SITE COORDINATOR.CSIR Anesthesia Complication Comment: Post-operative progress note Anesthesia: Postop Eval II Evaluation Mental status: Awake and Calm Pain Level: 2 nausea: No Vomiting: No
--- NOTE | 2024-10-06 13:16 | PCM.POSTANE2 ---
Anesthesia Postop Eval I Sum Postop Eval Completion status Anesthesia document: Postop Eval 1 completed: Yes Anesthesia Postop Eval I Summary Anesthesia Postop Eval I Summary: Anesthesia Postop Eval I: Assessment Summary Airway patent Yes 10/06/24 11:48 CORPORATE [email or web address] Spontaneous unlabored Yes 10/06/24 11:48 CORPORATE [email or web address].CSIR respirations Mental status nausea No 10/06/24 11:48 CORPORATE WEBMASTER.CSIR Vomiting No 10/06/24 11:48 CORPORATE [email or web address].[email or web address] Anesthesia Postop Eval I: Fluid Summary Crystalloid volume administer 900 10/06/24 11:48 CORPORATE WEBMASTER.CSIR (ml) Colloids volume administered ( ml) Blood Product volume administered (ml) Total IV fluid infused 900 10/06/24 11:48 CORPORATE WEBMASTER.CSIR Anesthesia Postop Eval I: Summary Notes Anesthesia Complication No 10/06/24 11:48 CORPORATE WEBMASTER.CSIR Anesthesia Complication Comment: Post-operative progress note Anesthesia: Postop Eval II Evaluation Mental status: Awake and Calm Pain Level: 2 nausea: No Vomiting: No
[2024-10-06] MEDS: Phenazopyridine 95 MG Tablet 190 MG PO (13:20)
[2024-10-06] MEDS: Ketorolac 15 MG/ML Vial IV (13:20)
[2024-10-06] MEDS: Acetaminophen 325 MG Tablet 650 MG PO (13:48)
[2024-10-06] MEDS: oxyCODONE 5 MG Tablet 10 MG PO (13:48)
== END 2024-10-06 13:58 | disposition home or self-care (01) ==
LOC: SDC 09:00 → AC 09:02
PROVIDERS: PCP Family Medicine; Referring Provider Urology; Visit Provider Urology
PROC: (CPT 50590; principal; 2024-10-06 10:20)
DX: N20.0 Calculus of kidney (principal); J43.9 Emphysema, unspecified; R31.0 Gross hematuria; I10 Essential (primary) hypertension; E78.2 Mixed hyperlipidemia; K21.9 Gastro-esophageal reflux disease without esophagitis; F17.210 Nicotine dependence, cigarettes, uncomplicated; E03.9 Hypothyroidism, unspecified; Z79.890 Hormone replacement therapy; Z79.899 Other long term (current) drug therapy
CPT/HCPCS: 52332; 50590; 00873; 94640; C2625; J2405

== ENCOUNTER → 2024-10-19 | Outpatient (CLI) | payer MEDICARE, BC, SELFPAY ==
--- NOTE | 2024-10-19 13:00 | RAD_ITS ---
PROCEDURE: ABDOMEN SINGLE VIEW REASON FOR EXAM: Kidney stones TECHNIQUE: Single view abdomen. COMPARISON: 09/06/2024. FINDINGS: Bowel gas pattern is normal. No evidence of bowel obstruction. A 10 mm calcification projects over the inferior pole, left kidney. Left double pigtail nephroureteral stent, proximal pigtail at the L3-L4 level. Right total hip arthroplasty. RAD/Abdomen Single View IMPRESSION: 1. Left nephrolithiasis. 2. Left double pigtail nephroureteral stent. Proximal pigtail appears to lie in the proximal to mid ureter. 3. Right total hip arthroplasty. Reading Location: [facility]
== END | disposition home or self-care (01) ==
LOC: MTRAD 13:00
PROVIDERS: PCP Family Medicine; Referring Provider Urology; Visit Provider Urology
DX: N20.0 Calculus of kidney (principal)
CPT/HCPCS: 74018

== ENCOUNTER 2024-11-10 07:48 | Day surgery (SDC) | payer MEDICARE, BC, SELFPAY ==
--- NOTE | 2024-11-04 10:17 | PAT.ANESEVAL ---
Pre-Assessment Diagnosis/Proposed Procedure Planned Operative Procedure(s): (L) Cysto,Ureteroscopy,Dil,Basket Ext,Stent Anesthesia History Anesthesia History - senior clinical data analyst: Anesthesia History - senior clinical data analyst Hx Hospitalization No 11/02/24 13:15 Any Problems With Anesthesia Yes: BREATHING WHEN WAKING 11/02/24 13:15 UP, BUT SINCE STARTED AERO TX PREOP NO PROBLEMS Cholinesterase deficiency No 11/02/24 13:15 You/Your Family Experience No 11/02/24 13:15 fever (hyperthermia) with Relationship Recent Exposure to Contagious No 10/06/24 09:15 Disease Does patient have nerve No 11/02/24 13:15 stimulator Patient instructed to have device shut off --Does patient have Pacemaker or ICD? When Was Last Pacemaker Check QUESTION #4 FULL TEXT: You/Your Family Experience fever (hyperthermia) with Anesthesia Last Oral Intake Last Oral intake: Last Oral Intake NPO since Meds taken in AM with sips of water? Meds patient instructed to take am of surgery PONV PONV - senior clinical data analyst: PONV - senior clinical data analyst Female Yes 11/02/24 13:15 HX of Motion Sickness Yes 11/02/24 13:15 HX of N/V After Surgery No 11/02/24 13:15 Non-Smoker No 11/02/24 13:15 Duration of Surgery greater No 11/02/24 13:15 than 60 minutes Number of Risk Factors 2 11/02/24 13:15 PONV Score Moderate Risk 11/02/24 13:15 Height & Weight Height & Weight: Anesthesia: Height & Weight Height 5 ft 10/06/24 09:15 Respiratory Assessment Respiratory Assessment - senior clinical data analyst: Respiratory Tract Infection Hx - senior clinical data analyst Hx Respiratory Tract Infection No 11/02/24 13:15 STOP Sleep Apnea STOP Sleep Apnea - senior clinical data analyst: STOP Sleep Apnea - senior clinical data analyst Hx Hypertension No 11/02/24 13:15 Hx Sleep Apnea Yes 11/02/24 13:15 CPAP Yes 11/02/24 13:15 BIPAP No 11/02/24 13:15 Do you snore loudly (louder than talking or can be heard Do you often feel tired/ fatigued/ sleepy during daytime? Has anyone observed you stop breathing during sleep? STOP Results Positive 11/02/24 13:15 QUESTION #5 FULL TEXT : Do you snore loudly (louder than talking or can be heard through closed doors)? 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 Specify any problems Hx of Preganancy in last 3 No 11/02/24 13:15 Months Nurse Filling Out Transfusion VCHRISTIN 11/02/24 13:15 & Questions: Date: 11/02/24 11/02/24 13:15 Time: 13:17 11/02/24 13:15 Patient unable to answer at this time (ie. confused, unrespo /Reproduction History /Reproductive History - senior clinical data analyst: /Reproductive Hx- senior clinical data analyst Hx Now No 11/02/24 13:15 Gestational Age (in weeks): EDC: Hx Hx Para Hx Section SAB No 11/02/24 13:15 PFSH Medical History Wears glasses Cancer Ambulates with cane High cholesterol Restless legs Syncope Difficulty swallowing Heartburn Smoker CPAP (continuous positive airway pressure) dependence Sleep apnea History of stress test History of echocardiogram Kidney stones Fibromyalgia Osteoarthritis Rheumatoid arthritis Home Medications ?Medication ?Instructions ?Recorded ?Last Taken ?Type amitriptyline 50 mg tablet 50 mg PO QHS 10/21/19 10/05/24 History cyclobenzaprine 5 mg tablet 5 mg PO TID PRN muscle spasm 10/21/19 Unknown History omeprazole 20 mg tablet,delayed 20 mg PO DAILY PRN heartburn 10/21/19 10/05/24 History release prednisone 5 mg tablet 5 mg PO DAILY PRN RA 10/21/19 Unknown History tramadol 50 mg tablet 50 mg PO TID PRN Pain Or Fever 10/21/19 Unknown History levothyroxine 25 mcg tablet 50 mcg PO DAILY 07/10/20 10/05/24 History tofacitinib 11 mg tablet,extended 11 mg PO DAILY 07/10/20 09/29/24 History release 24 hr albuterol sulfate 90 mcg/actuation 2 puff inhalation Q6H PRN 07/22/22 Unknown History aerosol inhaler bronchospasm atorvastatin 40 mg tablet 40 mg PO DAILY cholesterol 09/22/24 Unknown History cholecalciferol (vitamin D3) 50 50 mcg PO DAILY 09/22/24 Unknown History mcg (2,000 unit) capsule (Vitamin D3) diphenhydramine 25 2 tab PO QHS 09/22/24 Unknown History mg-acetaminophen 500 mg tablet (Acetadryl) etodolac 400 mg tablet 400 mg PO BID PRN pain 09/22/24 Unknown History ondansetron 4 mg disintegrating 4 mg PO Q8H PRN nausea and 10/06/24 Unknown Rx tablet vomiting #10 tabs phenazopyridine 200 mg tablet 200 mg PO TID PRN pain #30 tabs 10/06/24 Unknown Rx semaglutide (weight loss) 1.7 1.7 mg subcut QWEEK 11/02/24 10/24/24 History mg/0.75 mL subcutaneous pen injector (Wegovy) Allergy/AdvReac Type Severity Reaction Status Date / Time gabapentin Allergy Shortness Verified 11/02/24 13:07 of breath codeine AdvReac Upset Verified 11/02/24 13:07 Stomach Family History Grandmother Rheumatoid arthritis Unknown Diabetes Surgical History (Updated 11/02/24 @ 13:15 by Judith Stafford) Hx of cystoscopy Status post right hip replacement History of hand surgery History of bilateral carpal tunnel release History of bilateral knee replacement Social History household members: children number of children: 1 current occupational status: unemployed history of recent travel: No sexually active: No Smoking Status: Current every day smoker tobacco type: cigarettes alcohol intake: never substance use type: does not use what type of physical activity do you participate in: none seatbelt use: always do you feel safe at home: Yes additional social history: single Audit: Pertinent Findings Pertinent Findings EKG Perinent findings: Sinus tach otherwise normal Recommendation Anesthesia Recommendation Anesthesia recommendation: OPTIMIZED for anesthesia
[2024-11-10] VITALS (12 sets, daily range): BP systolic 109–144; BP diastolic 52–110; PULSE 71–89; RESP 16–20; TEMP 36.1–36.2; O2SAT 93–98; BMI 27.6
[2024-11-10] MEDS: 0.9% Normal Saline (1000mL) 1,000 ML 15 ML IV ×2 (08:28→12:41)
--- NOTE | 2024-11-10 08:50 | PRE.ANES_ITS ---
ASA Classification* ASA Classification ASA Classification: 3 (Patient has COPD (she may deny), thyroid disease, PARAMJIT, smoker, RA, and fibromyalgia. Also has cervical radiculopathy. Please keep neck in stable position during case due to RA.) Assessment & Plan Anesthesia* Anesthesia Assessment Anesthesia Assessment: Discussed sedation and/or anesthesia options, risks, benefits, and alternatives with patient/parents/legal guardian/POA. Questions invited. The patient/parents/legal guardian/POA seems to understand and agrees to proceed with anesthesia plan. Reviewed the physical assessment, medical history, allergy history and patient home medications list prior to surgery/procedure/anesthetic and documented any changes. Performed airway and anesthesia risk assessments. Anesthesia Type Anesthesia Type: General History Source History Obtained from:: Patient and Chart Anesthesia Focused Assessment* Temperature: 97.2 F Pulse Rate: 87 Blood Pressure: 130/80 Respiratory Rate: 16 Pulse Ox: 97 Oxygen Delivery Method: Room Air Airway Assessment Mouth opens: >3 cm Mallampati Score: II Teeth Condition: Intact and Caps/Crowns Neck Range of motion (ROM): Limited ROM (Patient has RA.. Patient has okay range but would not exacerbate and would be careful ) Focused Labs Anesthesia Preop lab: CBC WBC 5.8 K/mm3 (4.4-11.0) 09/29/24 13:37 09/29/24 RBC 4.40 M/mm3 (4.2-5.4) 09/29/24 13:37 09/29/24 Hgb 13.4 g/dL (12.0-15.0) 09/29/24 13:37 09/29/24 Hct 40.6 % (37-47) 09/29/24 13:37 09/29/24 Plt Count 248 K/mm3 (150-450) 09/29/24 13:37 09/29/24 CHEMISTRY Potassium 4.2 mmol/L (3.5-5.1) 09/29/24 13:37 09/29/24 Sodium 138 mmol/L (136-145) 09/29/24 13:37 09/29/24 BUN 6 mg/dL (7-18) L 09/29/24 13:37 09/29/24 Creatinine 0.60 mg/dL (0.55-1.02) 09/29/24 13:37 09/29/24 Glucose 85 mg/dL (74-106) 09/29/24 13:37 09/29/24 COAG Pre-Assessment Diagnosis/Proposed Procedure Planned Operative Procedure(s): (L) Cysto,Ureteroscopy,Dil,Basket Ext,Stent Anesthesia History 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 When Was Last Pacemaker Check QUESTION #4 FULL TEXT: You/Your Family Experience fever (hyperthermia) with Anesthesia Last Oral Intake Last Oral intake: Last Oral Intake NPO since 19:00 11/10/24 08:18 Meds taken in AM with sips of No 11/10/24 08:18 water? Meds patient instructed to take am of surgery PONV PONV - aviation survival technician: PONV - aviation survival technician Female Yes 11/02/24 13:15 HX of Motion Sickness Yes 11/02/24 13:15 HX of N/V After Surgery No 11/02/24 13:15 Non-Smoker No 11/02/24 13:15 Duration of Surgery greater No 11/02/24 13:15 than 60 minutes Number of Risk Factors 2 11/02/24 13:15 PONV Score Moderate Risk 11/02/24 13:15 Height & Weight Height & Weight: Anesthesia: Height & Weight Height 5 ft 11/10/24 08:18 Weight: 64.1 kg 11/10/24 08:18 Body Mass Index (BMI) 27.6 11/10/24 08:18 Respiratory Assessment Respiratory Assessment - aviation survival technician: Respiratory Tract Infection Hx - aviation survival technician Hx Respiratory Tract Infection No 11/02/24 13:15 STOP Sleep Apnea STOP Sleep Apnea - aviation survival technician: STOP Sleep Apnea - aviation survival technician Hx Hypertension No 11/02/24 13:15 Hx Sleep Apnea Yes 11/02/24 13:15 CPAP Yes 11/02/24 13:15 BIPAP No 11/02/24 13:15 Do you snore loudly (louder than talking or can be heard Do you often feel tired/ fatigued/ sleepy during daytime? Has anyone observed you stop breathing during sleep? STOP Results Positive 11/02/24 13:15 QUESTION #5 FULL TEXT : Do you snore loudly (louder than talking or can be heard through closed doors)? 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 Specify any problems Hx of Preganancy in last 3 No 11/02/24 13:15 Months Nurse Filling Out Transfusion VCHRISTIN 11/02/24 13:15 & Questions: Date: 11/02/24 11/02/24 13:15 Time: 13:17 11/02/24 13:15 Patient unable to answer at this time (ie. confused, unrespo /Reproduction History /Reproductive History - aviation survival technician: /Reproductive Hx- aviation survival technician Hx Now No 11/02/24 13:15 Gestational Age (in weeks): EDC: Hx Hx Para Hx Section SAB No 11/02/24 13:15 Active Medications Active Medications: Current Medications Generic Name Dose Route Start Last Admin Trade Name Freq PRN Reason Stop Dose Admin Cefazolin Sodium 2 gm/ N/A 20 mls @ 400 mls/hr 11/10/24 09:50 IV 11/10/24 09:52 PREOP ONE Sodium Chloride 1,000 mls @ 15 mls/hr 11/10/24 07:55 11/10/24 08:28 IV 11/15/24 21:14 15 mls/hr .Q48H PAM Administration Protocol [facility] Medical History Wears glasses Cancer Ambulates with cane High cholesterol Restless legs Syncope Difficulty swallowing Heartburn Smoker CPAP (continuous positive airway pressure) dependence Sleep apnea History of stress test History of echocardiogram Kidney stones Fibromyalgia Osteoarthritis Rheumatoid arthritis Home Medications ?Medication ?Instructions ?Recorded ?Last Taken ?Type amitriptyline 50 mg tablet 50 mg PO QHS 10/21/1910/05 History cyclobenzaprine 5 mg tablet 5 mg PO TID PRN muscle spa sm 10/21/19 Unknown History omeprazole 20 mg tablet,delayed 20 mg PO DAILY PRN hea rtburn 10/21/19 10/05/24 History release prednisone 5 mg tablet 5 mg PO DAILY PRN RA 0 Unknown History tramadol 50 mg tablet 50 mg PO TID PRN Pain Or Fev er 10/21/19 Unknown History levothyroxine 25 mcg tablet 50 mcg PO DAILY 07/10/20 0 10/05/24 History tofacitinib 11 mg tablet,extended 11 mg PO DAILY 07/1011/03/24 History release 24 hr albuterol sulfate 90 mcg/actuation 2 puff inhalation Q 6H PRN 07/22/22 Unknown History aerosol inhaler bronchospasm atorvastatin 40 mg tablet 40 mg PO DAILY cholesterol 0 09/22/24 Unknown History cholecalciferol (vitamin D3) 50 50 mcg PO DAILY Unknown History mcg (2,000 unit) capsule (Vitamin D3) diphenhydramine 25 2 tab PO QHS 09/22/24 Unknow n History mg-acetaminophen 500 mg tablet (Acetadryl) etodolac 400 mg tablet 400 mg PO BID PRN pain 09/22 Unknown History ondansetron 4 mg disintegrating 4 mg PO Q8H PRN nausea and 10/06/24 Unknown Rx tablet vomiting #10 tabs phenazopyridine 200 mg tablet 200 mg PO TID PRN pain # 30 tabs 10/06/24 Unknown Rx semaglutide (weight loss) 1.7 1.7 mg subcut QWEEK 01/2210/24/24 History mg/0.75 mL subcutaneous pen injector (Sondra) Allergy/AdvReac Type Severity Reaction Status Date / Time gabapentin Allergy Shortness Verified 11/10/24 08:15 of breath codeine AdvReac Upset Verified 11/10/24 08:15 Stomach Family History Grandmother Rheumatoid arthritis Unknown Diabetes Surgical History (Updated 11/02/24 @ 13:15 by Judith Stafford) Hx of cystoscopy Status post right hip replacement History of hand surgery History of bilateral carpal tunnel release History of bilateral knee replacement Social History household members: children number of children: 1 current occupational status: unemployed history of recent travel: No sexually active: No Smoking Status: Current every day smoker tobacco type: cigarettes alcohol intake: never substance use type: does not use what type of physical activity do you participate in: none seatbelt use: always do you feel safe at home: Yes additional social history: single Review of Systems (Anesthesia) ROS Narrative System reviewed and no additional complaints, except as documented. Physical Exam Const alert, oriented x3 and average body habitus Resp normal respiratory effort, normal air movement and clear to auscultation bilaterally Effort and Inspection: decreased respiratory effort Cardio regular rate, regular rhythm, no murmurs and diaphoretic
[2024-11-10] MEDS: Ipratropium/Albuterol Sulfate 3 ML AMPUL.NEB INHALATION (09:00)
--- NOTE | 2024-11-10 09:50 | CALC_PTH ---
PATIENT: JOELLEN BERNABE [place] [facility] [id number] AGE/SX: 64/F ROOM: RE11/10/[address]: Dr. Kimberly Vera MD : [id number] BED: DIS: 11/10/2024 SPEC #: [id number] RECD: 11/10/24 13:39 STATUS: AMY NIMESH #: [id number] DEVYN: 11/10/24 09:[address]: Kimberly Vera DEPT: SURGICAL PATHOLOGY RECD BY: Herman Mendieta ENTERED: 11/10/24 13:39 SP TYPE: Calculi OTHR DR: Dr. Roberto Chavez MD Tissues: CALCULI Procedures: Surgery Specimen Level I HEADER OPERATION: Left ureteroscopy, Thulium laser litho, stone basket PRE-OP DIAGNOSIS: Left renal calculi TISSUE SUBMITTED: Calculi for analysis, left GROSS DIAGNOSIS LEFT RENAL CALCULI, REMOVAL: * URINARY CALCULI (GROSS DIAGNOSIS ONLY) * CHENICAL ANALYSIS PENDING (A SEPARATE REPORT WILL FOLLOW). GROSS DESCRIPTION Received without fixative labeled with the patient's name and designated left calculi for analysis The specimen consists of multiple tiny black stones measuring in aggregate 6 x 5 x 2 mm.. The entire specimen is submitted for chemical analysis. This is for gross diagnosis only and no sections are submitted. CPT: 22755
[2024-11-10] MEDS: Cefazolin 2 GM in Syringe IV (10:44)
--- NOTE | 2024-11-10 10:51 | EX.PCM.DISCH ---
Discharge Instructions Diet Discharge Diet: No restrictions Activity Discharge Activity: Return to Normal Activity Dressing / Incision Call your doctor if you observe: Fever of 101 or Higher, Inability to urinate and Inability to have a bowel movement Follow Up Care Please Follow Up With: Kimberly Vera MD When: The office will call to make arrangements for follow-up. Test Results: Test results from this visit will be discussed in further detail at your follow-up appointment, if applicable. Discharge Plan Admission Attending Provider: Kimberly Vera Primary Care Provider: Roberto Chavez Instructions Print Language: Greenlandic Discharge Orders/Prescriptions Prescriptions: New oxycodone-acetaminophen 5-325 mg tablet 1 tab PO Q8H PRN (Reason: pain) 3 Days Qty: 10 0RF cephalexin 500 mg capsule 500 mg PO Q12 3 Days Qty: 6 0RF ondansetron 4 mg tablet,disintegrating 4 mg PO Q8H PRN (Reason: nausea and vomiting) Qty: 10 0RF phenazopyridine 200 mg tablet 200 mg PO TID PRN (Reason: pain) Qty: 30 3RF Continued albuterol sulfate 90 mcg/actuation HFA aerosol inhaler 2 puff inhalation Q6H PRN (Reason: bronchospasm) prednisone 5 MG tablet 5 mg PO DAILY PRN (Reason: RA) tramadol 50 MG tablet 50 mg PO TID PRN (Reason: Pain Or Fever) amitriptyline 50 MG tablet 50 mg PO QHS cyclobenzaprine 5 MG tablet 5 mg PO TID PRN (Reason: muscle spasm) omeprazole 20 MG tablet,delayed release (DR/EC) 20 mg PO DAILY PRN (Reason: heartburn) levothyroxine 25 mcg tablet 50 mcg PO DAILY tofacitinib 11 mg tablet extended release 24 hr 11 mg PO DAILY Patient Comments: WILL STOP TAKING 11/03/2024 diphenhydramine-acetaminophen [Acetadryl] 25-500 mg tablet 2 tab PO QHS atorvastatin 40 mg tablet 40 mg PO DAILY etodolac 400 mg tablet 400 mg PO BID PRN (Reason: pain) cholecalciferol (vitamin D3) [Vitamin D3] 50 mcg (2,000 unit) capsule 50 mcg PO DAILY ondansetron 4 mg tablet,disintegrating 4 mg PO Q8H PRN (Reason: nausea and vomiting) Qty: 10 0RF phenazopyridine 200 mg tablet 200 mg PO TID PRN (Reason: pain) Qty: 30 3RF Wegovy 1.7 mg/0.75 mL pen injector 1.7 mg subcut QWEEK Referrals / Follow Up: Roberto Chavez MD [Primary Care Provider] - Disposition Disposition (needs filled in before D/C Order can be placed): Home, Self Care
--- NOTE | 2024-11-10 11:39 | PCM.OPRPT ---
Operative Report (Standard) Operative Information Date of Procedure: 11/10/24 Pre-Operative Diagnosis: Left renal calculus Post-Operative Diagnosis: Left renal and ureteral calculi Surgery/Procedure Performed: Cystoscopy, left ureteroscopy, laser lithotripsy, stone basket extraction, left ureteral stent change clinical science consultant: No Type of Anesthesia: General RN Documented Start/Stop Times: Operation Date: 11/10/24 09:50 Case Time Into Pre-Op 11/10/24 07:53 Out of Pre-Op 11/10/24 10:39 Anesthesia Start 11/10/24 10:44 Into Room 11/10/24 10:44 Procedure Start 11/10/24 10:55 Procedure End 11/10/24 11:32 Anesthesia End 11/10/24 11:45 Out of Room 11/10/24 11:45 Procedure Start Time: 10:55 Procedure Stop Time: 11:32 Select all DRAINS/GRAFTS/IMPLANTS that apply: Drains Drain details: 6 Albanian x 22 cm JJ stent Estimated Blood Loss: <5cc Specimen collected: Yes Description of specimen(s) removed: Ureteral and renal stone fragments Description of surgery: The patient is a 64-year-old female who previously underwent a left renal extracorporal shockwave lithotripsy with stent insertion who now presents for removal of the remaining stone fragments. Informed consent was obtained. The patient was taken to the operating room and placed on the operating room table. Anesthesia monitored the head, neck, airway, IV access and vital signs throughout the case. Once anesthesia was appropriately administered, she was placed into dorsolithotomy position and was prepped and draped in usual sterile fashion. The cystoscope was inserted through the urethra under direct visualization into the urinary bladder. The left ureteral stent was observed. 2 separate 0.035 Glidewire's were passed alongside of the stent into the renal pelvis. The ureteral stent was removed with graspers. At this time the flexible ureteroscope was advanced over one of the Glidewire's and access to the ureter was obtained. A stone was seen in the ureter and the scope was advanced around the stone into the renal pelvis. A few small stone fragments were identified in the lower pole and the remainder of the renal pelvis was empty. The laser fiber was then used to break the ureteral stone into small pieces. The stone basket was used to remove the pieces of the ureteral stone as well as the small pieces remaining in the lower pole. The entire length of the ureter was directly visualized with the ureteroscope revealing no evidence of injury. The cystoscope was used to place a new 6 Albanian 22 cm JJ stent over the remaining safety wire with good positioning in the renal pelvis as well as the urinary bladder. At this time there were a few small stone fragments in the bladder lumen and those were removed with grasping forceps. The stone fragments were sent for analysis. The patient's bladder was emptied and the cystoscope was removed. She was awakened and taken to the recovery room in good condition. There were no complications during this procedure. Surgical Findings: Stones removed, stent changed Complications Complications: No Admit VTE Documentation VTE Present on Admission: Yes VTE Mechan Device Prophylaxis: SCD's VTE Pharm Prophylaxis ordered?: No Reason prophylaxis not ordered: Treatment Not Indicated
[2024-11-10] MEDS: Sugammadex Sodium 200 MG/2 ML VIAL IV (11:41)
--- NOTE | 2024-11-10 11:53 | PCM.POST.ANE ---
Anesthesia: Postop Eval I Current Vital Signs Temperature: 97 F Pulse Rate: 85 Blood Pressure: 144/80 Respiratory Rate: 20 Pulse Ox: 98 Assessment Airway patent: Yes Spontaneous unlabored respirations: Yes nausea: No Vomiting: No Anesthesia Complication: No Fluid Hydration Crystalloid volume administer (ml): 900 Total IV fluid infused: 900 Progress Note Anesthesia document: Postop Eval 1 completed: Yes
--- NOTE | 2024-11-10 12:32 | POSTOPAN2_ITS ---
Anesthesia Postop Eval I Sum Postop Eval Completion status Anesthesia document: Postop Eval 1 completed: Yes Anesthesia Postop Eval I Summary Anesthesia Postop Eval I Summary: Anesthesia Postop Eval I: Assessment Summary Airway patent Yes 11/10/24 11:53 DIRECTOR [email or web address] Spontaneous unlabored Yes 11/10/24 11:53 DIRECTOR [email or web address] respirations Mental status nausea No 11/10/24 11:53 DIRECTOR [email or web address] Vomiting No 11/10/24 11:53 DIRECTOR [email or web address] Anesthesia Postop Eval I: Fluid Summary Crystalloid volume administer 900 11/10/24 11:53 [email or web address] (ml) Colloids volume administered ( ml) Blood Product volume administered (ml) Total IV fluid infused 900 11/10/24 11:53 [email or web address] Anesthesia Postop Eval I: Summary Notes Anesthesia Complication No 11/10/24 11:53 DIRECTOR [email or web address] Anesthesia Complication Comment: Post-operative progress note Anesthesia: Postop Eval II Evaluation Mental status: Awake Pain Level: 6 nausea: No Vomiting: No Progress Note Post-operative progress note: Patient complaining of pain, abdominal to back. Will consult urologist. Patient so far has received 4 mg zofran and 1 mg dilaudid. Will continue to follow and address pain. Complications Anesthesia Complication: No
--- NOTE | 2024-11-10 12:32 | PCM.POSTANE2 ---
Anesthesia Postop Eval I Sum Postop Eval Completion status Anesthesia document: Postop Eval 1 completed: Yes Anesthesia Postop Eval I Summary Anesthesia Postop Eval I Summary: Anesthesia Postop Eval I: Assessment Summary Airway patent Yes 11/10/24 11:53 [email or web address] Spontaneous unlabored Yes 11/10/24 11:53 GARMENT [email or web address] respirations Mental status nausea No 11/10/24 11:53 GARMENT [email or web address] Vomiting No 11/10/24 11:53 [email or web address] Anesthesia Postop Eval I: Fluid Summary Crystalloid volume administer 900 11/10/24 11:53 [email or web address] (ml) Colloids volume administered ( ml) Blood Product volume administered (ml) Total IV fluid infused 900 11/10/24 11:53 [email or web address] Anesthesia Postop Eval I: Summary Notes Anesthesia Complication No 11/10/24 11:53 GARMENT [email or web address] Anesthesia Complication Comment: Post-operative progress note Anesthesia: Postop Eval II Evaluation Mental status: Awake Pain Level: 6 nausea: No Vomiting: No Progress Note Post-operative progress note: Patient complaining of pain, abdominal to back. Will consult urologist. Patient so far has received 4 mg zofran and 1 mg dilaudid. Will continue to follow and address pain. Complications Anesthesia Complication: No
[2024-11-10] MEDS: Ketorolac 15 MG/ML Vial IV (12:37)
[2024-11-10] MEDS: Phenazopyridine 95 MG Tablet 190 MG PO (13:15)
[2024-11-10] MEDS: oxyCODONE 5 MG Tablet 10 MG PO (13:21)
[2024-11-18 15:08] LABS: Ca Oxalate, Dihydrate 10 % (.); Ca Oxalate, Monohydrate 90 % (.); Size 3x3 mm (.)
== END 2024-11-10 13:38 | disposition home or self-care (01) ==
LOC: SDC 07:49 → AC 07:50
PROVIDERS: PCP Family Medicine; Referring Provider Urology; Visit Provider Urology
PROC: 0TJ98ZZ Inspection of Ureter, Via Natural or Artificial Opening Endoscopic (ICD-10-PCS; CPT 52352; principal; 2024-11-10 09:40)
DX: N20.2 Calculus of kidney with calculus of ureter (principal); J44.9 Chronic obstructive pulmonary disease, unspecified; I10 Essential (primary) hypertension; E78.2 Mixed hyperlipidemia; E03.9 Hypothyroidism, unspecified; G47.33 Obstructive sleep apnea (adult) (pediatric); M79.7 Fibromyalgia; F17.210 Nicotine dependence, cigarettes, uncomplicated; Z79.85 Long-term (current) use of injectable non-insulin antidiabetic drugs; Z79.890 Hormone replacement therapy; Z79.899 Other long term (current) drug therapy
CPT/HCPCS: 52356; 00918; 76000; 82360; 88300; 94640; C1769; C2625; J2405

== ENCOUNTER → 2024-12-27 | Outpatient (CLI) | payer MEDICARE, BC, SELFPAY ==
[2024-12-27 15:17] LABS: Absolute Lymphocyte Count 1.67 X10^3/uL (0.83-4.51); Absolute Neutrophil Count 2.5 X10^3/uL (2.0-7.7); Basophil# 0.02 X10^3/uL; Basophil% 0.4 % (0-1); Eosinophil# 0.04 X10^3/uL; Eosinophils% 0.8 % (0-5); Hematocrit 35.5 % (37-47); Hemoglobin 11.6 g/dL (12.0-15.0); Lymphocyte # 1.67 X10^3/ul (0.83-4.51); Lymphocyte % 34.8 % (19-41); Mean Corp Hgb Conc 32.7 g/dL (32-36); Mean Corpuscular Volume 91.7 fL (81-99); Mean Platelet Vol. 10.6 fl (6.2-12.0); Monocyte# 0.55 X10^3/uL; Monocyte% 11.5 % (0-10); NRBC Flagged by Analyzer 0 % (0-5); Neutrophil # 2.51 X10^3/uL (2.7-7.7); Neutrophil % 52.3 % (47-70); Platelet Count 248 K/mm3 (150-450); RBC Distribution Width CV 15.2 % (11.6-14.6); RBC Distribution Width SD 51.7 fl (35.1-43.9); Red Blood Count 3.87 M/mm3 (4.2-5.4); White Blood Count 4.8 K/mm3 (4.4-11.0)
[2024-12-27 16:01] LABS: ALB/GLOB Ratio 1.9 RATIO (0.9-2.4); AST(SGOT) 26 U/L (<=31); Alanine Aminotransfer ALT/SGPT 16 U/L (<=34); Albumin, Serum 4.1 g/dL (3.4-4.8); Alkaline Phosphatase 70 U/L (35-104); Anion Gap 10 (5-15); BUN 8 mg/dL (4-19); BUN/Creat Ratio 14.7 RATIO (10-20); Calcium,Total 9.3 mg/dL (7.6-11.0); Carbon Dioxide 24.4 mmol/L (21.0-32.0); Chloride 105 mmol/L (98-108); Creatinine, Serum 0.55 mg/dL (0.70-1.20); EST Glomerular Filtration Rate 101 (>60); Globulin 2.1 g/dL (2.2-4.2); Glucose 87 mg/dL (70-99); Potassium 3.8 mmol/L (3.3-5.1); Protein, Total 6.2 g/dL (5.9-8.4); Sodium Level 140 mmol/L (133-145); Total Bilirubin 0.25 mg/dL (0.00-1.30)
== END | disposition home or self-care (01) ==
LOC: MTLAB 13:43
PROVIDERS: PCP Family Medicine; Referring Provider Internal Medicine Rheumatology; Visit Provider Internal Medicine Rheumatology
DX: M06.00 Rheumatoid arthritis without rheumatoid factor, unspecified site (principal); M79.7 Fibromyalgia; Z79.899 Other long term (current) drug therapy
CPT/HCPCS: 36415; 80053; 85025